=== PATIENT | male | born 1935 | race Caucasian/White ===

== ENCOUNTER 2016-05-21 16:48 | Emergency (ER) | payer MEDICARE, BC ==
[2016-05-21 17:01] VITALS: BP 146/69
--- NOTE | 2016-05-21 17:15 | UC ---
Epistaxis Nasal HPI - HPI Summary HPI Summary: has had nasal drainage for 1 week has been taking decongestants, bloody nose at 4pm that last about 40 mins---did not apply direct pressure just learned his head back - History of Current Complaint Chief Complaint: UCRespiratory Stated Complaint: BLOODY NOSE Time Seen by Provider: 05/21/16 17:07 Hx Obtained From: Patient Onset/Duration: Sudden Onset, Lasting Minutes - 40, Resolved Timing: Constant Severity Initially: Mild Severity Currently: None Pain Intensity: 0 Character: Light Aggravating Factor(s): URI Alleviating Factor(s): Nothing Associated Signs And Symptoms: Positive: Nasal Discharge - Allergies/Home Medications Allergies/Adverse Reactions: Allergies Allergy/AdvReac Type Severity Reaction Status Date / Time No Known Allergies Allergy Verified 08/14/15 15:50 PMH/Surg Hx/FS Hx/Imm Hx Previously Healthy: No Endocrine History Of: Denies: Diabetes Cardiovascular History Of: Denies: Hypertension, Pacemaker/ICD, Congestive Heart Failure Respiratory History Of: Reports: Asthma - CHILDHOOD ASTHMA Denies: Bronchitis, Pulmonary Embolism GI/ History Of: Denies: Kidney Stones, Renal Disease Neurological History Of: Denies: CVA, Seizures, Migraine Psychological History Of: Denies: Anxiety, Depression - Surgical History Surgical History: Yes Surgery Procedure, Year, and Place: 2010 [facility]. CARPAL TUNNEL SURGERY 2011. BACK SURGERY 2015 - Family History Known Family History: Positive: Hypertension - Social History Occupation: Retired Lives: With Family Alcohol Use: Daily Alcohol Amount: 2 GLASSES WINE W/ DINNER Substance Use Type: None Smoking Status (MU): Former Smoker Type: Cigarettes Have You Smoked in the Last Year: No When Did the Patient Quit Smoking/Using Tobacco: 48 years ago - Immunization History Most Recent Influenza Vaccination: fall 2015 Review of Systems Constitutional: Negative Skin: Negative Eyes: Negative ENT: Nasal Discharge - blood for about 40 minutes Respiratory: Negative Cardiovascular: Negative Gastrointestinal: Negative Genitourinary: Negative Motor: Negative Neurovascular: Negative Musculoskeletal: Negative Neurological: Negative Psychological: Negative All Other Systems Reviewed And Are Negative: Yes Physical Exam Triage Information Reviewed: Yes Appearance: Well-Appearing, No Pain Distress, Well-Nourished Vital Signs: Initial Vital Signs Temp 99.0 F 05/21/16 16:55 Pulse 63 05/21/16 16:55 Resp 16 05/21/16 16:55 BP 146/69 05/21/16 16:55 Pulse Ox 100 05/21/16 16:55 Vital Signs Reviewed: Yes Eye Exam: Normal Eyes: Positive: Conjunctiva Clear ENT Exam: Normal ENT: Positive: Normal ENT inspection, Hearing grossly normal, Pharynx normal, TMs normal, Other: - left nare nasal septum is red but no site of bleeding identified. Negative: Pharyngeal erythema, Nasal congestion, Nasal drainage, Tonsillar swelling, Tonsillar exudate, Trismus, Muffled/hoarse voice Neck exam: Normal Neck: Positive: Supple, Nontender, No Lymphadenopathy Respiratory Exam: Normal Respiratory: Positive: Chest non-tender, Lungs clear, Normal breath sounds, No respiratory distress, No accessory muscle use Cardiovascular Exam: Normal Cardiovascular: Positive: RRR, Pulses Normal, Brisk Capillary Refill Musculoskeletal Exam: Normal Musculoskeletal: Positive: Strength Intact, ROM Intact, No Edema Neurological Exam: Normal Neurological: Positive: Alert, Muscle Tone Normal Psychological Exam: Normal Skin Exam: Normal Epistaxis Nasal Course/Dx - Course Course Of Treatment: education on management and prevention of nose bleeds, follow with pcp return as needed - Differential Dx/Diagnosis Differential Diagnosis/HQI/PQRI: Coagulopathy, Environmental, Sinusitis Provider Diagnoses: resolved epistaxis Discharge - Discharge Plan Condition: Stable Disposition: HOME Patient Education Materials: Nosebleed (ED) Referrals: Tylor Bender MD [Primary Care Provider] - If Needed
== END 2016-05-21 17:19 | disposition home or self-care (01) ==
LOC: UCEAST 16:48
DX: R04.0 Epistaxis (principal); J45.909 Unspecified asthma, uncomplicated; Z87.891 Personal history of nicotine dependence
CPT/HCPCS: 99211; G0463

== ENCOUNTER 2016-06-08 22:39 | Emergency (ER) | payer MEDICARE, BC ==
[2016-06-09 00:45] VITALS: BP 166/68
--- NOTE | 2016-06-09 01:00 | ED ---
Skin Complaint - HPI Summary HPI Summary: 80M presents with avulsion of right forearm. He was moving a window and scraped his skin on something in the window. He is right handed. He washed the area, placed peroxide on it and placed neosporin on it. He is not on any blood thinners. - History of Current Complaint Chief Complaint: EDExtremityUpper Time Seen by Provider: 06/09/16 00:38 Stated Complaint: RT ARM WOUND Pain Intensity: 0 - Allergy/Home Medications Allergies/Adverse Reactions: Allergies Allergy/AdvReac Type Severity Reaction Status Date / Time No Known Allergies Allergy Verified 08/14/15 15:50 PMH/Surg Hx/FS Hx/Imm Hx Endocrine/Hematology History: Denies: Hx Bone Marrow Disease, Hx Diabetes, Hx Sickle Cell Disease, Hx Anemia Cardiovascular History: Reports: Hx Peripheral Vascular Disease, Other Cardiovascular Problems/Disorders - Raynauds's Denies: Hx Angina, Hx Cardiomegaly, Hx Congestive Heart Failure, Hx Coronary Artery Disease, Hx Hypertension, Hx Pacemaker/ICD, Hx Rheumatic Fever, Hx Valvular Heart Disease Respiratory History: Reports: Hx Asthma - CHILDHOOD ASTHMA Denies: Hx Pulmonary Edema, Hx Pulmonary Embolism, Hx Sleep Apnea, Other Respiratory Problems/Disorders GI History: Reports: Hx Gastroesophageal Reflux Disease - ONCE 7-8 YEARS AGO Denies: Other GI Disorders - recent severe constipation, taking OTC medications History: Denies: Hx Kidney Infection, Hx Kidney Stones, Hx Renal Disease, Other Problems/Disorders Musculoskeletal History: Reports: Hx Arthritis - THUMBS AND BACK, Hx Back Problems Denies: Hx Tendonitis, Other Musculoskeletal History Sensory History: Reports: Hx Cataracts, Hx Contacts or Glasses, Hx Hearing Aid - BILATERAL Opthamlomology History: Reports: Hx Cataracts, Hx Contacts or Glasses Neurological History: Denies: Hx Headaches, Hx Migraine, Hx Nerve Disease, Hx Seizures, Other Neuro Impairments/Disorders Psychiatric History: Denies: Hx Anxiety, Hx Depression, Hx Panic Disorder - Cancer History Cancer Type, 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 CARPAL TUNNEL SURGERY 2012. BACK SURGERY 2016 Hx Anesthesia Reactions: No Infectious Disease History: No Infectious Disease History: Denies: Traveled Outside the [place] in Last 30 Days - Family History Known Family History: Positive: Hypertension - Social History Alcohol Use: Daily Alcohol Amount: 2 GLASSES WINE W/ DINNER Substance Use Type: Reports: None Smoking Status (MU): Former Smoker Type: Cigarettes Have You Smoked in the Last Year: No Review of Systems Negative: Fever Negative: Chest Pain Negative: Shortness Of Breath Positive: Other - skin avulsion of right forearm All Other Systems Reviewed And Are Negative: Yes Physical Exam Triage Information Reviewed: Yes Vital Signs On Initial Exam: Initial Vitals Temp Pulse Resp BP Pulse Ox 98.3 F 65 16 138/61 98 06/08/16 22:50 06/08/16 22:50 06/08/16 22:50 06/08/16 22:50 06/08/16 22:50 Vital Signs Reviewed: Yes Appearance: Positive: Well-Appearing Skin: Positive: Warm, Dry, Other - 3 cm by 4cm flap like avulsion on right forearm Head/Face: Positive: Normal Head/Face Inspection Eyes: Positive: Normal, Conjunctiva Clear Respiratory/Lung Sounds: Positive: Clear to Auscultation, Breath Sounds Present Cardiovascular: Positive: Normal, RRR Procedures - Laceration/Wound Repair 1 Location: Other - right forearm Description: Irregular Length, Depth and Shape: flap like skin avulsion 3 by 4cm Irrigated w/ Saline (ccs): 100 Closure: Skin Adhesive Diagnostics - Vital Signs Vital Signs Temp Pulse Resp BP Pulse Ox 06/09/16 00:44 98.1 F 60 18 166/68 06/08/16 22:50 98.3 F 65 16 138/61 98 - Laboratory Lab Statement: Any lab studies that have been ordered have been reviewed, and results considered in the medical decision making process. Course/Dx - Course Course Of Treatment: 80F presents with skin avulsion of right forearm that is flap like. cleaned area and place steristrip and covered. patient understands and agrees with plan - Differential Diagnoses - Skin Complaint Differential Diagnoses: Abscess, Other - avulsion, laceration - Diagnoses Provider Diagnoses: Avulsion of right forearm Discharge - Discharge Plan Condition: Good Disposition: HOME Patient Education Materials: Skin Avulsion (ED) Referrals: Tylor Bender MD [Primary Care Provider] - Additional Instructions: Change dressing once a day Place neosporin in area Steri strips will fall off on own Check for any signs of infection such as fever, spreading warmth and redness, pus, and return to ED if develop signs
== END 2016-06-09 01:07 | disposition home or self-care (01) ==
LOC: ED 22:39
DX: S51.801A Unspecified open wound of right forearm, initial encounter (principal); X58.XXXA Exposure to other specified factors, initial encounter; Y93.9 Activity, unspecified; Y92.9 Unspecified place or not applicable
CPT/HCPCS: 99281

== ENCOUNTER 2016-11-20 11:21 | Observation (INO) | payer BC, MEDICARE ==
[2016-11-20 12:01] LABS: Hematocrit 44 % (42-52); Mean Corpuscular HGB Conc 35 g/dl (31-36); Mean Corpuscular Hemoglobin 32 pg (27-31); Mean Corpuscular Volume 92 fL (80-94); Red Blood Count 4.76 10^6/ul (4.0-5.4); Red Cell Distribution Width 14 % (10.5-15); White Blood Count 7.6 10^3/ul (3.5-10.8)
[2016-11-20 12:02] LABS: Add Diff/Slide Review? Slide Review Added; Comments Flag Yes
--- NOTE | 2016-11-20 12:20 | RAD ---
INDICATION: Left-sided numbness COMPARISON: CT of the brain January 30, 2012 TECHNIQUE: Contiguous axial sections of the brain were obtained from the skull base to the vertex without contrast. FINDINGS: The ventricles, cisterns and sulci exhibit mild symmetric involutional changes similar in appearance to the [address] There is mild periventricular and subcortical white matter hypoattenuation most consistent with chronic microvascular disease. There is asymmetric focal hypoattenuation involving the right basal ganglia that appears similar to the 2012 CT of the brain. The raman-white matter differentiation is otherwise adequately maintained and there is no sulcal effacement. No significant focal abnormality or mass effect is present. There is no evidence for intracranial hemorrhage. No significant focal osseous abnormality is present. In the visualized superior portion of the left maxillary sinus there is a mixed attenuation inspissated secretion was not seen on the most recent CT examination. Remaining visualized paranasal sinuses are well-aerated as are the mastoid air cells. IMPRESSION: 1. Chronic findings as described above that of not substantially changed since the January 30, 2012 CT of the brain. If there is strong clinical concern for acute territorial infarction MRI of the brain may be necessary for objective determination. 2. Partially visualized hyperdense inspissated secretion in the left maxillary sinus.
[2016-11-20 12:22] LABS: Mean Platelet Volume 8 um3 (7.4-10.4)
[2016-11-20 12:23] LABS: Albumin 4.2 g/dL (3.2-5.2); BUN/Creatinine Ratio 19.8 (8-20); Calcium 9.5 mg/dL (8.6-10.3); EGFR African American 73.8 (>60); EGFR Non-African American 57.4 (>60); Globulin 3.2 g/dL (2-4); Potassium 3.9 mmol/L (3.5-5.0); Total Bilirubin 0.5 mg/dL (0.2-1.0); Total Protein 7.4 g/dL (6.4-8.9)
[2016-11-20 12:25] LABS: Troponin I 0.01 ng/mL (<0.04)
[2016-11-20 12:43] LABS: Urine Bilirubin Negative (Negative); Urine Glucose Negative (Negative); Urine Nitrite Negative (Negative)
[2016-11-20] MEDS ORDERED: Aspirin TAB* 325 MG PO ONE (13:40)
--- NOTE | 2016-11-20 14:38 | ED ---
Jeromy Maldonado Nilda, scribed for Fer Guerrero MD on 11/20/16 at 1139 . Neurological HPI - HPI Summary HPI Summary: This patient is an 80 year old M presenting to [facility] accompanied by with a chief complaint of intermittent numbness of the LLE, left scapula, and left hand since 0900 this morning. Last night patient had difficulty ambulating and decrease function in left foot as if there was something that was sticky at the bottom of my shoe. Per , she did not notice changes in the patients speech or abnormal facial movement. The patient rates the pain 0/10 in severity. Symptoms aggravated and alleviated by nothing. Patient reports fatigue (went on a hike, yesterday), normal speech, and normal feeling in face. Patient recently stopped taking daily aspirin one week ago due to easy bruising. PMHx includes [place] Palsy and Herniated Disc (2016, resolved). - History of Current Complaint Chief Complaint: EDNeurologicalDeficit Stated Complaint: LT LEG NUMBNESS Hx Obtained From: Patient, Family/Internet Programmer - Onset/Duration: Sudden Onset Timing: Intermittent Episodes Lasting: - 1 day Current Severity: Mild Pain Intensity: 0 Pain Scale Used: 0-10 Numeric Character: Numbness/Tingling - LLE, left scapula, and left hand Aggravating: Nothing Alleviating: Nothing Associated Signs and Symptoms: Negative: Impaired Speech - Allergy/Home Medications Allergies/Adverse Reactions: Allergies Allergy/AdvReac Type Severity Reaction Status Date / Time No Known Allergies Allergy Verified 11/20/16 11:46 Home Medications: Home Medications Mupirocin 2% OINT* [Bactroban 2 % Oint*] 1 applic TOPICAL DAILY 11/20/16 [ History Confirmed 11/20/16] PMH/Surg Hx/FS Hx/Imm Hx Endocrine/Hematology History: Denies: Hx Bone Marrow Disease, Hx Diabetes, Hx Sickle Cell Disease, Hx Anemia Cardiovascular History: Reports: Hx Peripheral Vascular Disease, Other Cardiovascular Problems/Disorders - Raynauds's Denies: Hx Angina, Hx Cardiomegaly, Hx Congestive Heart Failure, Hx Coronary Artery Disease, Hx Hypertension, Hx Pacemaker/ICD, Hx Rheumatic Fever, Hx Valvular Heart Disease Respiratory History: Reports: Hx Asthma - CHILDHOOD ASTHMA Denies: Hx Pulmonary Edema, Hx Pulmonary Embolism, Hx Sleep Apnea, Other Respiratory Problems/Disorders GI History: Reports: Hx Gastroesophageal Reflux Disease - ONCE 7-8 YEARS AGO Denies: Other GI Disorders - recent severe constipation, taking OTC medications History: Denies: Hx Kidney Infection, Hx Kidney Stones, Hx Renal Disease, Other Problems/Disorders Musculoskeletal History: Reports: Hx Arthritis - THUMBS AND BACK, Hx Back Problems Denies: Hx Tendonitis, Other Musculoskeletal History Sensory History: Reports: Hx Cataracts, Hx Contacts or Glasses, Hx Hearing Aid - BILATERAL Opthamlomology History: Reports: Hx Cataracts, Hx Contacts or Glasses Neurological History: 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 CARPAL TUNNEL SURGERY 2012. BACK SURGERY 2016 Hx Anesthesia Reactions: No Infectious Disease History: Yes Infectious Disease History: Denies: Traveled Outside the [place] in Last 30 Days - Family History Known Family History: Negative: Hypertension, Diabetes - Social History Alcohol Use: Daily Alcohol Amount: 2 GLASSES WINE W/ DINNER Substance Use Type: Reports: None Smoking Status (MU): Former Smoker Type: Cigarettes Have You Smoked in the Last Year: No Review of Systems Positive: Fatigue - yesterday Positive: Other - numbness in LLE, left scapula, and left hand Neurological: Other - difficulty ambulating; negative changes in speech and facial movement All Other Systems Reviewed And Are Negative: Yes Physical Exam Triage Information Reviewed: Yes Vital Signs On Initial Exam: Initial Vitals Temp Pulse Resp BP Pulse Ox 96.9 F 65 19 174/71 100 11/20/16 11:24 11/20/16 11:24 11/20/16 11:24 11/20/16 11:24 11/20/16 11:24 Vital Signs Reviewed: Yes Appearance: Positive: Well-Appearing, No Pain Distress Skin: Positive: Warm, Skin Color Reflects Adequate Perfusion, Dry Head/Face: Positive: Normal Head/Face Inspection Eyes: Positive: Normal ENT: Positive: Normal ENT inspection Neck: Positive: Supple, Nontender Respiratory/Lung Sounds: Positive: Clear to Auscultation, Breath Sounds Present Cardiovascular: Positive: RRR Abdomen Description: Positive: Nontender, Soft Bowel Sounds: Positive: Present Musculoskeletal: Positive: Normal Neurological: Positive: Normal Psychiatric: Positive: Normal, Affect/Mood Appropriate Diagnostics - Vital Signs Vital Signs Temp Pulse Resp BP Pulse Ox 11/20/16 11:24 96.9 F 65 19 174/71 100 - Laboratory Lab Results: Lab Results 11/20/16 11/20/16 11/20/16 Range/Units 11:45 11:45 11:45 WBC 7.6 (3.5-10.8) 10^3/ul RBC 4.76 (4.0-5.4) 10^6/ul Hgb 15.0 (14.0-18.0) g/dl Hct 44 (42-52) % MCV 92 (80-94) fL MCH 32 H (27-31) pg MCHC 35 (31-36) g/dl RDW 14 (10.5-15) % Plt Count 231 (150-450) 10^3/ul MPV 8 (7.4-10.4) um3 Neut % (Auto) 66.0 (38-83) % Lymph % (Auto) 22.4 L (25-47) % Collin % (Auto) 8.7 (1-9) % Eos % (Auto) 2.5 (0-6) % Baso % (Auto) 0.4 (0-2) % Absolute Neuts (auto) 5.0 (1.5-7.7) 10^3/ul Absolute Lymphs (auto) 1.7 (1.0-4.8) 10^3/ul Absolute Monos (auto) 0.7 (0-0.8) 10^3/ul Absolute Eos (auto) 0.2 (0-0.6) 10^3/ul Absolute Basos (auto) 0 (0-0.2) 10^3/ul Absolute Nucleated RBC 0 10^3/ul Nucleated RBC % 0 INR (Anticoag Therapy) 0.90 (0.89-1.11) Sodium 131 L (133-145) mmol/L Potassium 3.9 (3.5-5.0) mmol/L Chloride 97 L (101-111) mmol/L Carbon Dioxide 27 (22-32) mmol/L Anion Gap 7 (2-11) mmol/L BUN 24 (6-24) mg/dL Creatinine 1.21 H (0.67-1.17) mg/dL Est GFR ( Amer) 73.8 (>60) Est GFR (Non-Af Amer) 57.4 (>60) BUN/Creatinine Ratio 19.8 (8-20) Glucose 113 H (70-100) mg/dL Hemoglobin A1c (4.0-5.6) % Lactic Acid (0.5-2.0) mmol/L Calcium 9.5 (8.6-10.3) mg/dL Total Bilirubin 0.50 (0.2-1.0) mg/dL AST 23 (13-39) U/L ALT 12 (7-52) U/L Alkaline Phosphatase 43 (34-104) U/L Troponin I 0.01 (<0.04) ng/mL Total Protein 7.4 (6.4-8.9) g/dL Albumin 4.2 (3.2-5.2) g/dL Globulin 3.2 (2-4) g/dL Albumin/Globulin Ratio 1.3 (1-3) Urine Color Urine Appearance Urine pH (5-9) Ur Specific [place] (1.010-1.030) Urine Protein (Negative) Urine Ketones (Negative) Urine Blood (Negative) Urine Nitrate (Negative) Urine Bilirubin (Negative) Urine Urobilinogen (Negative) Ur Leukocyte Esterase (Negative) Urine Glucose (Negative) Urine Ascorbic Acid (Negative) 11/20/16 11/20/16 11/20/16 Range/Units 11:45 11:45 12:14 WBC (3.5-10.8) 10^3/ul RBC (4.0-5.4) 10^6/ul Hgb (14.0-18.0) g/dl Hct (42-52) % MCV (80-94) fL MCH (27-31) pg MCHC (31-36) g/dl RDW (10.5-15) % Plt Count (150-450) 10^3/ul MPV (7.4-10.4) um3 Neut % (Auto) (38-83) % Lymph % (Auto) (25-47) % Collin % (Auto) (1-9) % Eos % (Auto) (0-6) % Baso % (Auto) (0-2) % Absolute Neuts (auto) (1.5-7.7) 10^3/ul Absolute Lymphs (auto) (1.0-4.8) 10^3/ul Absolute Monos (auto) (0-0.8) 10^3/ul Absolute Eos (auto) (0-0.6) 10^3/ul Absolute Basos (auto) (0-0.2) 10^3/ul Absolute Nucleated RBC 10^3/ul Nucleated RBC % INR (Anticoag Therapy) (0.89-1.11) Sodium (133-145) mmol/L Potassium (3.5-5.0) mmol/L Chloride (101-111) mmol/L Carbon Dioxide (22-32) mmol/L Anion Gap (2-11) mmol/L BUN (6-24) mg/dL Creatinine (0.67-1.17) mg/dL Est GFR ( Amer) (>60) Est GFR (Non-Af Amer) (>60) BUN/Creatinine Ratio (8-20) Glucose (70-100) mg/dL Hemoglobin A1c 6.1 H (4.0-5.6) % Lactic Acid 1.3 (0.5-2.0) mmol/L Calcium (8.6-10.3) mg/dL Total Bilirubin (0.2-1.0) mg/dL AST (13-39) U/L ALT (7-52) U/L Alkaline Phosphatase (34-104) U/L Troponin I (<0.04) ng/mL Total Protein (6.4-8.9) g/dL Albumin (3.2-5.2) g/dL Globulin (2-4) g/dL Albumin/Globulin Ratio (1-3) Urine Color Penny Urine Appearance Cloudy Urine pH 5.0 (5-9) Ur Specific [place] 1.023 (1.010-1.030) Urine Protein Negative (Negative) Urine Ketones Trace H (Negative) Urine Blood Negative (Negative) Urine Nitrate Negative (Negative) Urine Bilirubin Negative (Negative) Urine Urobilinogen Negative (Negative) Ur Leukocyte Esterase Negative (Negative) Urine Glucose Negative (Negative) Urine Ascorbic Acid * H (Negative) Result Diagrams: 11/20/16 11:45 11/20/16 11:45 Lab Statement: Any lab studies that have been ordered have been reviewed, and results considered in the medical decision making process. - CT Brain CT CT Interpretation Completed By: Radiologist - 1. Chronic findings as described above that of not substantially changed since the January 30, 2012 CT of the brain. If there is strong clinical concern for acute territorial infarction MRI of the brain may be necessary for objective determination. 2. Partially visualized hyperdense inspissated secretion in the left maxillary sinus. ED Physician reviewed report and agrees. - EKG 1150 Cardiac Rate: NL - 60 bpm EKG Rhythm: Sinus Rhythm EKG Interpretation: no diffuse specific changes Re-Evaluation - Re-Evaluation First Eval Re-Evaluation Time: 12:48 Comment: ED Physician reviewed planned to admit patient. Patient understands and agrees with plan. Course/Dx - Course Course Of Treatment: Mr. Leggett was mildly symptomatic with what could be a TIA/ CVA. His ED W/U was negative and I spoke with Dr. Miranda who recommended OBV and further W/U. - Diagnoses Provider Diagnoses: CVA (cerebral vascular accident) - Physician Notifications Discussed Care Of Patient With: Shelby Miranda - Neuro Time Discussed With Above Provider: 12:33 Instructed by Provider To: Admit As Inpatient Discharge - Discharge Plan Condition: Stable Disposition: ADMITTED TO [facility] Referrals: Tylor Bender MD [Primary Care Provider] - The documentation as recorded by the Jeromy osorio Nilda accurately reflects the service I personally performed and the decisions made by me, Fer Guerrero MD.
--- NOTE | 2016-11-20 17:39 | HP ---
CC: Dr. Bender * [facility] MEDICINE HISTORY AND PHYSICAL: DATE OF ADMISSION: 11/20/16 PRIMARY CARE PHYSICIAN: Dr. Tylor Bender. ATTENDING PHYSICIAN: Dr. Bakari Jones * (dictation provided by Awilda Trinidad NP ). CHIEF COMPLAINT: Left hand tingling and left foot numbness. HISTORY OF PRESENT ILLNESS: Mr. 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 Mr. Leggett says he was in his normal state of health until about 7 o'clock last night, at that time, he felt like something was sticking to the bottom of the foot. He felt that all of the toes on the left were numb. This sensation continued until he went to bed. He got up in the middle of the night a couple of times to go to the bathroom. During those times when he was awake, he did notice that the foot was not numb any longer. However, in the morning, he has had some intermittent feeling of numbness did persist. He does not have left toe numbness now. This morning, at about 8 o'clock noticed that he was having left hand tingling and he ultimately decided to come to the emergency room out of concern for possible stroke. He has had no other acute complaints. Denies fevers, chills, cough, chest pain, shortness of breath, nausea, vomiting, or abdominal pain. He has been eating and drinking normally and had normal full bowel movements. In the emergency room, Mr. Leggett has had CT of the brain, which showed no acute abnormality, but did show only symmetric involutional change and asymmetric focal hypoattenuation of the right basal ganglia, but this was all unchanged from 2012. EKG shows a sinus rhythm with no evidence of ischemia. His labs were unremarkable. PAST MEDICAL HISTORY: 1. 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 2. Lumbar diskectomy L3-L4 in 2016 secondary to left leg pain. 3. Raynaud's. 4. History of right carpal tunnel release. MEDICATIONS: 1. Amlodipine 5 mg p.o. daily p.r.n. Raynaud's symptoms. 2. Naproxen 200 mg p.o. daily. 3. Aspirin 81 mg p.o. daily (the patient states he stopped taking for the past week because he was bruising easily). 4. Mupirocin 2% topical daily to his nostrils for a history of nose bleeding. 5. The patient also takes a cream for actinic keratosis on the right cheek; he does not know the name of that. ALLERGIES: No known drug allergies. FAMILY HISTORY: The patient reports his mother had 2 CVAs, in her 70s. Dad had heart attack at age 86, but related to a stroke in 95. SOCIAL HISTORY: The patient quit smoking in his 30s. He drinks wine at night with dinner, never had any concern for alcohol withdrawal symptoms. No prior drug use. The patient lives with his who is healthcare proxy. REVIEW OF SYSTEMS: A 14-point review of systems was completed with Mr. Leggett and all those not mentioned above were negative. PHYSICAL EXAMINATION GENERAL: Mr. Leggett is sitting up in bed. He is in no acute distress. VITAL SIGNS: Temperature 96.9, pulse rate 72, respiratory rate 18, O2 saturation 99% on room air, blood pressure 169/80. LUNGS: Clear to auscultation bilaterally with no accessory muscle use and good aeration. HEART: S1, S2. No murmur, rub, or gallop and regular. ABDOMEN: Soft, nontender with bowel sounds positive x4. EXTREMITIES: No cyanosis or edema. NEUROLOGIC: He is alert and oriented x3. He moves all extremities equally. There is no facial asymmetry or focal weakness. Sensation is intact to both feet and both hands as well as the remainder of his physical exam. SKIN: Intact. DIAGNOSTIC STUDIES/LAB DATA: Sodium 131, potassium 3.9, chloride 97, serum bicarbonate 27, BUN 24, creatinine 1.21, glucose 113, lactic acid 1.3. Urine shows no evidence of infection. CT brain was read as follows: "Chronic findings as described above that are not substantially changed since 01/30/12 CT of the brain. If there is strong clinical concern for acute territorial infarction, MRI of the brain may be necessary for exact determination." EKG shows a sinus rhythm with heart rate of 60 and no evidence of ischemia. ASSESSMENT AND PLAN: Mr. Leggett is an 80-year-old male with a past medical history of Mclain's palsy of left side of his face, lumbar diskectomy L3-L4 secondary to left leg pain, who presents to the hospital with concern for left- sided toe numbness and left finger tingling, which is now at this point resolved. Our suspicion is for possible transient ischemic attack and our plans are for observation in the hospital for followin. Transient ischemic attack: The patient's symptoms have resolved. Plan to check MRI brain. He will have fasting lipid profile, hemoglobin A1c checked as well. He has had 325 mg of aspirin in the emergency room. He will continue on 81 mg daily. If stroke is found, we will have to consider whether or not the patient should be increased to full dose aspirin or alternate agents such Aggrenox. The patient will be monitored on telemetry unit and he will have transthoracic echocardiogram. 2. Elevated creatinine. The patient's creatinine is 1.21, which is slightly up from baseline and slightly above normal, plan to recheck in the a.m. He can follow up with his primary care physician if any further testing is indicated. 3. History of Raynaud's. The patient will have amlodipine as needed. No evidence of Raynaud's at this point. 4. DVT prophylaxis with SCDs and early mobility. 4. Code status is full code. TIME SPENT: Approximately 60 minutes was spent on the admission of this patient , more than half time was spent with the patient at the bedside reviewing the events leading up to this hospitalization, performing the physical examination, and reviewing the plan of care. AWILDA TRINIDAD, ANGELA [id number]/[facility] #: [id number] CARMELITA
--- NOTE | 2016-11-20 19:25 | RAD ---
Indication: LEFT side numbness, tingling. Some LEFT facial droop. Mclain's palsy. Comparison: January 30, 2012 CT. Technique: UsingMilesa 1.5 Paulette HO366P with GEM suite. MRI brain without contrast. Report: Diffusion series is negative for acute or subacute ischemia. Susceptibility series is negative for stigmata of hemosiderin deposition to indicate previous hemorrhage. Mild prominence of the cerebral sulci. Unremarkable ventricles and basal cisterns. Small chronic lacunar infarct at the RIGHT basal ganglia. Increased T2 signal at the periventricular and subcortical regions of the cerebral hemispheres most consistent with chronic small vessel ischemic disease. Bilateral symmetric mildly prominent perivascular spaces at the basal ganglia and brainstem. No suspicious intra or extra-axial lesions evident. Preserved major intracranial flow voids. Unremarkable orbital contents. Gross complete opacification of the RIGHT frontal sinus. Mucosal thickening at the LEFT frontal and bilateral maxillary sinuses. Negative for paranasal sinus fluid levels. Clear mastoid air spaces. Unremarkable scalp. IMPRESSION: 1. No acute abnormality of the brain evident. 2. Stigmata of chronic small vessel ischemic disease. Small chronic lacunar infarct at the RIGHT basal ganglia.
[2016-11-21 05:47] LABS: BUN/Creatinine Ratio 18.9 (8-20); EGFR African American 81.6 (>60); EGFR Non-African American 63.4 (>60); HDL Cholesterol 66.8 mg/dL; Potassium 4.1 mmol/L (3.5-5.0)
[2016-11-21] MEDS ORDERED: Mupirocin 2% OINT* TUBE TOPICAL SCH (09:00)
[2016-11-21] MEDS ORDERED: Aspirin EC Low Dose* 81 MG TAB.EC PO SCH (09:00)
--- NOTE | 2016-11-21 09:53 | ECHO ---
Patient: MIS SAUNDERS [facility] Rec#: [id number] : 1935 Date: 11/21/2016 Age: 80y Height: 165.1 cm / 65.0 in Weight: 54.43 kg / 120.0 lbs Sex: M BSA: 1.59 Room#: 450 Admit Date#: 11/20/2016 Type: Inpatient Referring: Awilda Trinidad NP Reading: Jean Pierre Edwards MD Clip Wrapper: Sonya dEwards RDCS,RDMS CC: Tylor Bender MD Transthoracic Echocardiogram Indication: TIA BP: 160/82 HR: 59 Rhythm: NSR Findings History: PVD, PACs, Raynauds, former smoker Technical Comments: The study quality is good. Left Ventricle: The left ventricular chamber size is normal. Mild concentric left ventricular hypertrophy is observed. Global left ventricular wall motion and contractility are within normal limits. There is normal left ventricular systolic function. The estimated ejection fraction is 60-65%. There is an E to A reversal in the mitral valve flow pattern suggestive of diastolic dysfunction. Left Atrium: The left atrial chamber size is normal. Right Ventricle: The right ventricular chamber size and systolic function are within normal limits. Right Atrium: The right atrial cavity size is normal. A patent foramen ovale is demonstrated by agitated contrast. Right to left shunting across the interatrial septum is seen on bubble study. Aortic Valve: The aortic valve is trileaflet. There is aortic annular calcification. There is trace to mild aortic regurgitation. There is no evidence of aortic stenosis. Mitral Valve: There is mitral annular calcification. The mitral valve leaflets are mildly thickened.The anterior leaflet has a calcified nodule. There is mild to moderate mitral regurgitation. There is no evidence of mitral stenosis. Tricuspid Valve: The tricuspid valve leaflets are mildly thickened. There is mild to moderate tricuspid regurgitation. No pulmonary hypertension is noted. Pulmonic Valve: The pulmonic valve structure is not well visualized. Pericardium: There is no significant pericardial effusion. Aorta: The ascending aorta is not well visualized. There is no dilatation of the aortic arch. The aortic root is normal in size. Pulmonary Artery: The main pulmonary artery is not well visualized. Venous: The inferior vena cava appears normal in size. There is a greater than 50% respiratory change in the inferior vena cava dimension. Contrast: Intravenous agitated saline contrast was used to assess intracardiac shunting. Images 82 and 83 Conclusions Mild concentric left ventricular hypertrophy is observed. There is normal left ventricular systolic function. The estimated ejection fraction is 60-65%. A patent foramen ovale is demonstrated by agitated contrast. Right to left shunting across the interatrial septum is seen on bubble study. There is trace to mild aortic regurgitation. The mitral valve leaflets are mildly thickened.The anterior leaflet has a calcified nodule. There is mild to moderate tricuspid regurgitation. The right ventricular chamber size and systolic function are within normal limits. The right atrial cavity size is normal. No reports of prior studies are offered for comparison. Transesophageal echocardiography may be of benefit to better assess shunting at atrial level . Measurements Name Value Normal Range RVIDd (AP) 2D 2.1 cm (0.9 - 2.6) RVDdMajor (2D) 2.6 cm (2.2 - 4.4) RAd ISD 4CH 4.5 cm (3.4 - 4.9) RA (A4C)W 3.8 cm (2.9 - 4.6) IVSd (2D) 1.3 cm (0.6 - 1) LVPWd (2D) 1.1 cm (0.6 - 1) LVIDd (2D) 3.7 cm (3.6 - 5.4) LVIDs (2D) 2.6 cm - LV FS (2D) 28 % (25 - 45) Aortic Annulus 1.9 cm (1.4 - 2.6) Ao root diameter (2D) 3.3 cm (2.1 - 3.5) Aortic arch 2.3 cm (1.8 - 3.4) LA dimension (AP) 2D 2.4 cm (2.3 - 3.8) LAd ISD 4CH 3.8 cm (2.9 - 5.3) LA ISD 4CH W 3.8 cm (2.5 - 4.5) Name Value Normal Range MV E-wave Vmax 0.6 m/sec - MV deceleration time 182.5 msec - MV A-wave Vmax 0.8 m/sec - MV E:A ratio 0.8 ratio - LV septal e' Vmax 0.04 m/sec - LV lateral e' Vmax 0.07 m/sec - LV E:e' septal ratio 15 ratio - LV E:e' lateral ratio 8.6 ratio - Name Value Normal Range AV Vmax 1.1 m/sec - AV VTI 26.3 cm - AV peak gradient 5 mmHg - AV mean gradient 2.4 mmHg - LVOT Vmax 0.7 m/sec - LVOT VTI 17.4 cm - LVOT peak gradient 2 mmHg - LVOT mean gradient 0.9 mmHg - MELVA Vmax 0.7 m/sec - Name Value Normal Range MR Vmax 7.07 m/sec - MR VTI 233.8 cm - Name Value Normal Range TR Vmax 2.5 m/sec - TR peak gradient 25 mmHg - RAP 3 mmHg - RVSP 27 mmHg - IVC diameter 1.5 cm -
--- NOTE | 2016-11-21 11:31 | PN ---
Subjective Date of Service: 11/21/16 Interval History: Patient seen and examined at bedside. Denies fever, chills, shortness of breath , chest discomfort, N/V/D, numbness. Pt reports some tingling to bilateral hands , that he feels may be related to his Raynaud's. Pt states that he eats a healthy diet. He would like to wait and discuss statin use with his PCP at his follow-up appointment. Tele: Sinus rhythm, rate 60-90's. Family History: Unchanged from Admission Social History: Unchanged from Admission Past Medical History: Unchanged from Admission Objective Active Medications: Aspirin (Aspirin Ec Low Dose*) 81 mg PO DAILY PREM Mupirocin (Bactroban 2 % Oint*) 1 applic TOPICAL DAILY [facility] Vital Signs 11/20/16 11/20/16 11/20/16 13:50 14:00 14:15 Temperature Pulse Rate 88 68 66 Respiratory 15 16 Rate Blood Pressure 166/120 169/86 172/73 (mmHg) O2 Sat by Pulse 79 100 100 Oximetry 11/20/16 11/20/16 11/20/16 14:30 14:45 15:00 Temperature Pulse Rate 64 64 64 Respiratory 15 15 16 Rate Blood Pressure 170/71 167/79 163/81 (mmHg) O2 Sat by Pulse 100 98 97 Oximetry 11/20/16 11/20/16 11/20/16 15:10 15:15 19:35 Temperature 97.3 F 97.3 F Pulse Rate 73 68 65 Respiratory 15 16 18 Rate Blood Pressure 163/81 160/82 161/81 (mmHg) O2 Sat by Pulse 95 99 100 Oximetry 11/20/16 11/21/16 11/21/16 23:30 03:40 07:26 Temperature 97.9 F 98.2 F 97.5 F Pulse Rate 54 61 58 Respiratory 14 16 20 Rate Blood Pressure 144/60 155/81 157/76 (mmHg) O2 Sat by Pulse 98 99 100 Oximetry Oxygen Devices in Use Now: None Appearance: NAD, laying in bed Ears/Nose/Mouth/Throat: Mucous Membranes Moist Respiratory: Symmetrical Chest Expansion and Respiratory Effort, Clear to Auscultation Cardiovascular: NL Sounds; No Murmurs; No JVD, RRR Abdominal: NL Sounds; No Tenderness; No Distention Extremities: No Edema Skin: No Rash or Ulcers Neurological: Alert and Oriented x 3, NL Muscle Strength and Tone, - - Hand key ringer equal, able to perform finger to nose bilateral, smile symmetric, no pronator drift noted. Lines/Tubes/Other Access: Clean, Dry and Intact Peripheral IV - site benign Nutrition: Taking PO's Result Diagrams: 11/20/16 11:45 11/21/16 05:17 Assess/Plan/Problems-Billing Assessment: Mr. Leggett is an 80 yo male with PMH significant for Mclain's palsy of the left side of his face, s/p lumbar diskectomy L3-4 secondary to left leg pain who presented to the hospital with left-sided toe numbness and left finger tingling , which has resolved. He was admitted for a possible TIA. - Patient Problems (1) TIA (transient ischemic attack) Comment: - Symptoms resolved - Brain MRI - no acute abnormality, small chronic lacunar infarct at the right basal ganglia. - Echo - Mild concentric LVH, EF 60-65%, PFO with right to left shunting. - Continue ASA - Elevated LDL, Pt would like to discuss starting a statin with his PCP (2) Elevated serum creatinine Code(s): R79.89 - OTHER SPECIFIED ABNORMAL FINDINGS OF BLOOD CHEMISTRY SNOMED Code(s): 442617095 Comment: - Resolved (3) HTN (hypertension) Code(s): I10 - ESSENTIAL (PRIMARY) HYPERTENSION SNOMED Code(s): 90131459 Comment: - SBP 140-170's - Start Amlopidpine daily (4) History of Raynaud's syndrome Code(s): Z86.79 - PERSONAL HISTORY OF OTHER DISEASES OF THE CIRCULATORY SYSTEM SNOMED Code(s): 335584906 Comment: - Continue Amlodipine (5) DVT prophylaxis Code(s): NEN1441 - SNOMED Code(s): 239505960 (6) Full code status Code(s): Z78.9 - OTHER SPECIFIED HEALTH STATUS SNOMED Code(s): 997312944 Status and Disposition: OBV. Stable for discharge to home today.
[2016-11-21 12:38] VITALS: BP 145/76
--- NOTE | 2016-11-22 03:26 | DS ---
CC: Dr. Tylor Bender * DISCHARGE SUMMARY: DATE OF ADMISSION: 11/20/16 DATE OF DISCHARGE: 11/21/16 ATTENDING PHYSICIAN: Dr. Leonardo Booth * (dictated by Sea Ruvalcaba NP). PRIMARY CARE PROVIDER: Dr. Tylor Bender. PRIMARY DIAGNOSES: 1. Transient ischemic attack. 2. Hyperlipidemia. SECONDARY DIAGNOSES: 1. History of Mclain's palsy. 2. Raynaud's disease. STUDIES WHILE IN THE HOSPITAL: 1. Brain CT from 11/20/16. Radiologist impression: Chronic findings as described above that have not substantially changed since the 01/30/12 CT of the brain. If there is strong clinical concern for acute territorial infarction , MRI of the brain may be necessary for objective determination. Partially visualized hyperdense inspissated secretion of the left maxillary sinus. 2. Brain CT from 11/20/16. Radiologist impression: No acute abnormality of the brain evident. Stigmata of chronic small vessel ischemic disease. Small chronic lacunar infarct at the right basal ganglia. 3. Transthoracic echocardiogram from 11/21/16. Director Product impression: Mild concentric left ventricular hypertrophy is observed. There is normal left ventricular systolic function. The estimated ejection fraction is 60% to 65%. A patent foramen ovale is demonstrated by agitated contrast. Right to left shunting across the interatrial septum is seen on bubble study. There is trace to mild aortic regurgitation. The mitral valve leaflets are mildly thickened. The anterior leaflet has a calcified nodule. There is [id number] tricuspid regurgitation. The right ventricular chamber size and systolic function are within normal limits. The right atrial cavity size is normal. No report of prior studies are offered for comparison. Transesophageal echocardiography may be a benefit to better assess the shunting at atrial levels. DISCHARGE MEDICATIONS: Continued home medications: 1. Mupirocin 2% ointment apply topical daily. 2. Naproxen 200 mg oral daily. 3. Aspirin 81 mg oral daily. Changed home medication: Amlodipine changed from 5 mg oral daily as needed during cold weather to 5 mg oral daily. HISTORY OF PRESENT ILLNESS/HOSPITAL COURSE: Mr. 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 Prior to that, Mr. Leggett had reported being in his normal state of health. The patient had gone to with left toe numbness and then when he got up in the middle of the night, he noticed that his foot was no longer numb. However, in the morning, he intermittently continue to have the feeling of intermittent left foot numbness. The patient also that morning had noticed left hand tingling. He decided to present to the emergency room for further evaluation of his symptoms. While in the emergency room, Mr. Leggett had a CT of the brain showing no acute abnormalities. The patient had an EKG showing a sinus rhythm with no signs of acute ischemia. His labs were unremarkable. The Hospitalists were asked to evaluate the patient for admission. While in the hospital, the patient underwent a brain CT showing chronic lacunar infarct at the right basal ganglia, but no acute signs of the cerebrovascular accident. The patient had echocardiogram showing a patent foramen ovale. The patient had fasting lipids showing cholesterol of 182 and LDL of 103, HDL of 66. The patient is no longer having any numbness or tingling. He was up ambulating and was monitored on telemetry with no acute findings. Mr. Leggett is stable for discharge to home today. Vital signs are as follows, temperature 97.2, heart rate 70, respiratory rate 16, O2 sat 100% on room air, blood pressure 145/76. DISCHARGE PLAN: Mr. Leggett will be discharged to home. ACTIVITY: As tolerated. DIET: He should be on a heart healthy diet. As far as the patient's numbness and tingling, I suspect this was a TIA. The patient has been continued on a baby aspirin. The patient's cholesterol was under 200, but his LDL was 103. I offered to start the patient to start on a statin and he wishes to defer this to his primary care provider to discuss at his followup appointment. The patient was also noted to be slightly hypertensive during his stay with blood pressure systolically in the 140s to 170s. I have asked him to take his amlodipine daily instead of as needed. The patient has a followup appointment with his primary care provider, Dr. Bender, on 11/29/16 at 05:20 p.m. The patient has been asked to return to the emergency room for any chest pain, shortness of breath, or stroke symptoms. This is a summarized report of a complex medical history and hospital stay. For further details, please see the entire medical record. TIME SPENT: Time for this discharge was approximately 50 minutes, greater than half of that was spent with the patient discussing discharge plans and instructions. CONDITION ON DISCHARGE: Stable. SEA ARDON NP [id number]/[facility] #: [id number] CARMELITA
== END 2016-11-21 12:55 | disposition home or self-care (01) ==
LOC: ED 11:21 → MEDTELE 13:40
PROVIDERS: ADMIT Internal Medicine; ATTEND Internal Medicine
DX: G45.9 Transient cerebral ischemic attack, unspecified (principal); E87.5 Hyperkalemia; I73.00 Raynaud's syndrome without gangrene; Z87.891 Personal history of nicotine dependence; R79.89 Other specified abnormal findings of blood chemistry
CPT/HCPCS: 36415; 70450; 70551; 80048; 80053; 80061; 81003; 83036; 83605; 84484; 85025; 85610; 93005; 93306; 99284; A9270-GY; G0378

== ENCOUNTER 2017-11-26 09:27 | Emergency (ER) | payer MEDICARE ==
[2017-11-26] MEDS ORDERED: NS 0.9% 1000 ML* 1,000 ML IV ONE (09:33)
[2017-11-26] MEDS ORDERED: Ondansetron INJ* 2 MG/ML VIAL IV ONE (09:34)
--- NOTE | 2017-11-26 09:35 | ED ---
Syncope/Near Syncope - HPI Summary HPI Summary: This patient is a 82 year old M BIBA to [facility] with a chief complaint of a syncopal episode that occurred this morning. Per EMS when they arrived pt was unconscious and his was holding him up. Once he was put on the stretcher he quickly recovered. The patient rates the pain 0/10 in severity. Patient reports feels like he could make a BM.Patient denies diarrhea, vomiting, and etoh use today. Pt states this AM he felt like he could use the bathroom and he has been having trouble with constipation, yesterday he took a suppository. One year ago pt had a syncopal episode and was worked up for TIA but work up was negative - History Of Current Complaint Time Seen by Provider: 11/26/17 09:32 Hx Obtained From: Patient Onset/Duration: Sudden Onset, Resolved Timing: Seconds Context: Witnessed Activity At Onset: At Rest Associated Head Trauma: No Alleviating Factor(s): Spontaneous Resolution - Allergies/Home Medications Allergies/Adverse Reactions: Allergies Allergy/AdvReac Type Severity Reaction Status Date / Time No Known Allergies Allergy Verified 05/10/17 13:14 Home Medications: Home Medications Atorvastatin* [Lipitor 20 MG*] 20 mg PO DAILY 11/26/17 [History Confirmed ] PMH/Surg Hx/FS Hx/Imm Hx Endocrine/Hematology History: Denies: Hx Bone Marrow Disease, Hx Diabetes, Hx Sickle Cell Disease, Hx Anemia Cardiovascular History: Reports: Hx Peripheral Vascular Disease, Other Cardiovascular Problems/Disorders - Raynauds's Denies: Hx Angina, Hx Cardiomegaly, Hx Congestive Heart Failure, Hx Coronary Artery Disease, Hx Hypertension, Hx Pacemaker/ICD, Hx Rheumatic Fever, Hx Valvular Heart Disease Respiratory History: Reports: Hx Asthma - CHILDHOOD ASTHMA Denies: Hx Pulmonary Edema, Hx Pulmonary Embolism, Hx Sleep Apnea, Other Respiratory Problems/Disorders GI History: Reports: Hx Gastroesophageal Reflux Disease - ONCE 7-8 YEARS AGO Denies: Other GI Disorders - recent severe constipation, taking OTC medications History: Denies: Hx Kidney Infection, Hx Kidney Stones, Hx Renal Disease, Other Problems/Disorders Musculoskeletal History: Reports: Hx Arthritis - THUMBS AND BACK, Hx Back Problems Denies: Hx Tendonitis, Other Musculoskeletal History Sensory History: Reports: Hx Cataracts, Hx Contacts or Glasses, Hx Hearing Aid Opthamlomology History: Reports: Hx Cataracts, Hx Contacts or Glasses Neurological History: 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 BILATERAL CATARACTS Hx Anesthesia Reactions: No - Family History Known Family History: Negative: Hypertension, Diabetes - Social History Lives: With Family Alcohol Use: Daily Alcohol Amount: 1-2 glasses of wine a night Substance Use Type: Reports: None Smoking Status (MU): Former Smoker Type: Cigarettes Have You Smoked in the Last Year: No Review of Systems Positive: Other - constipation . Negative: Vomiting, Diarrhea Positive: Syncope All Other Systems Reviewed And Are Negative: Yes Physical Exam - Summary Physical Exam Summary: Appearance: Well appearing, no pain distress Skin: warm, dry, reflects adequate perfusion Head/face: normal Eyes: EOMI, ROBERT ENT: mucous membranes moist Neck: supple, non-tender, no bruits Respiratory: CTA, breath sounds present Cardiovascular: RRR, pulses symmetrical, pulses are strong Abdomen: non-tender, soft. No masses Bowel Sounds: present Musculoskeletal: normal, strength/ROM intact Neuro: normal, sensory motor intact, A&Ox3 Rectal: stool soft and brown, no blood. Triage Information Reviewed: Yes Vital Signs Reviewed: Yes Procedures - Ultrasound No standard instances Ultrasound: normal - no AAA Diagnostics - Laboratory Result Diagrams: 11/26/17 09:38 11/26/17 09:38 Lab Statement: Any lab studies that have been ordered have been reviewed, and results considered in the medical decision making process. - EKG 0927 Cardiac Rate: Bradycardia EKG Rhythm: Sinus Bradycardia - at [address] Segment: Normal EKG Interpretation: normal axis, normal intervals Re-Evaluation - Re-Evaluation First Eval Re-Evaluation Time: 10:58 Change: Improved Comment: Pt is feeling better. Course/Dx Course Of Treatment: Patient with a history of irritable bowel/constipation problems who presents with syncope following an episode where he had some abdominal cramping. His abdomen is nontender at present. His vitals are all normal here. He recovered quickly once she was laid to the ground. He has had history of syncope in the past after similar presentation then. He was hydrated here with relief and was discharged in good condition to follow up promptly with primary care physician. Bedside ultrasound of the abdominal aortic shows no presence of aneurysm. - Diagnoses Differential Diagnosis/HQI/PQRI: Positive: Cerebral Vascular Accident, Hyperventilation, Hypovolemia, Metabolic Reaction, Medication Reaction Provider Diagnoses: Chronic constipation, Vasovagal syncope Discharge - Sign-Out/Discharge Documenting (check all that apply): Patient Departure - Discharge Plan Condition: Improved Disposition: HOME Prescriptions: Bisacodyl SUPP* [Dulcolax Supp*] 10 mg NC DAILY PRN #10 supp PRN Reason: Constipation Docusate CAP* [Colace Cap*] 100 mg PO BID #30 cap Polyethylene Glycol 3350* [Miralax*] 17 gm PO BID PRN #1 bottle PRN Reason: Constipation Patient Education Materials: Syncope (ED) Referrals: Tylor Bender MD [Primary Care Provider] - Additional Instructions: Call your doctor today to schedule prompt follow-up. Drink plenty of fluids. Natural fruit juices, exercise and abdominal massage may help with constipation. Return if worse, passing out again, new symptoms or other concerns. - Billing Disposition and Condition Condition: IMPROVED Disposition: Home - Attestation Statements Document Initiated by Oksana: Yes Documenting Scribe: Andriy Hamlin Provider For Whom Oksana is Documenting (Include Credential): Kushal Gregory MD Scribe Attestation: Andriy Maldonado , scribed for Kushal Gregory MD on 11/26/17 at 1413. Scribe Documentation Reviewed: Yes Provider Attestation: The documentation as recorded by the Andriy osorio accurately reflects the service I personally performed and the decisions made by me, Kushal Gregory MD
[2017-11-26 09:47] LABS: ABS Basophils 0.1 10^3/ul (0-0.2); ABS Eosinophils 0.3 10^3/ul (0-0.6); ABS Lymphocytes 2.7 10^3/ul (1.0-4.8); ABS Monocytes 0.5 10^3/ul (0-0.8); ABS Neutrophils 3.5 10^3/ul (1.5-7.7); ABS Nucleated RBC 0 10^3/ul; Eosinophil % 4.8 % (0-6); Hematocrit 37 % (42-52); Hemoglobin 12.1 g/dl (14.0-18.0); Lymphocyte % 37.8 % (25-47); Mean Corpuscular HGB Conc 33 g/dl (31-36); Mean Corpuscular Hemoglobin 31 pg (27-31); Mean Corpuscular Volume 94 fL (80-94); Mean Platelet Volume 7.8 um3 (7.4-10.4); Nucleated Red Blood Cells % 0.2; Platelet Count 200 10^3/ul (150-450); Red Blood Count 3.94 10^6/ul (4.00-5.40); Red Cell Distribution Width 14 % (10.5-15); White Blood Count 7.1 10^3/ul (3.5-10.8)
[2017-11-26 09:53] LABS: INR 0.96 (0.77-1.02)
[2017-11-26 10:21] LABS: EGFR Non-African American 61.2 (>60)
[2017-11-26 10:43] LABS: Urine Appearance Clear; Urine Blood Negative (Negative); Urine Color Yellow; Urine Ketones Negative (Negative); Urine Protein Negative (Negative); Urine Specific Gravity 1.012 (1.010-1.030); Urine Urobilinogen Negative (Negative)
[2017-11-26 11:52] VITALS: BP 135/74
== END 2017-11-26 11:47 | disposition home or self-care (01) ==
LOC: ED 09:27
DX: R55 Syncope and collapse (principal); K59.09 Other constipation; I73.9 Peripheral vascular disease, unspecified; I73.00 Raynaud's syndrome without gangrene; Z85.828 Personal history of other malignant neoplasm of skin
CPT/HCPCS: 36415; 80053; 81003; 83605; 83735; 84443; 84484; 85025; 85610; 93005; 96361; 96374; 99283

== ENCOUNTER 2018-09-18 18:45 | Emergency (ER) | payer MEDICARE ==
--- OUTSIDE RECORDS SUMMARY | 2018-09-18 18:50 | XMS REPORT | Continuity of Care Document ---
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 Onset: 12/26/2013 Presbyopia Trevon Cortes O.D. Onset: 12/26/2013 Blepharitis Trevon Cortes O.D. Onset: 12/26/2013 Vitreous degeneration Trevon Cortes O.D. Onset: 12/26/2013 Family History Date Family Member(s) Observation Comments General Noncontributory Father Heart Disease Father Glasses Mother Glasses Social History Type Date Description Comments Sex Unknown ETOH Use Occasionally consumes alcohol Tobacco Use Start: Unknown Patient has never smoked Smoking Status Reviewed: 09/03/18 Patient has never smoked Allergies, Adverse Reactions, Alerts Active Allergies Reaction Severity Comments Date NKDA 12/26/2013 Seasonal 12/26/2013 Hay Fever 09/03/2018 Pollen 09/03/2018 Medications Active Medications SIG Qnty Indications Ordering Provider Date Amlodipine Besylate Tylor Bender MD 5mg Tablets Atorvastatin Calcium Tylor Bender MD 20mg Tablets Probiotic as needed Unknown 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 10mg Tablets History Medications Azithromycin Unknown - 250mg Tablets 01/21/2015 Azithromycin take 2 tablets by Unknown - 250mg Tablets mouth today then 1 01/21/2015 tablet once daily Nifedipine Tylor Bender MD - 10mg Capsules 01/21/2015 Vital Signs Date Vital Result Comment 08/21/2017 10:08am Intraocular Pressure Right Eye 15 mmHg Intraocular Pressure Left Eye 15 mmHg 01/24/2017 10:26am Intraocular Pressure Right Eye 15 mmHg Intraocular Pressure Left Eye 15 mmHg 01/24/2016 1:56pm Intraocular Pressure Right Eye 13 mmHg Intraocular Pressure Left Eye 12 mmHg 01/21/2015 3:04pm Intraocular Pressure Right Eye 16 mmHg Intraocular Pressure Left Eye 14 mmHg 12/26/2013 10:25am Intraocular Pressure Right Eye 16 mmHg Intraocular Pressure Left Eye 16 mmHg Procedures Date Code Description Status 08/21/2017 01737 Refraction Completed 08/21/2017 95475 Eye Exam Est Intermediate Completed 01/24/2017 01826 Eye Exam Est Intermediate Completed 01/24/2016 41894 Ophthalmoscopy Subsequent Completed 01/24/2016 29020 Refraction Completed 01/24/2016 51661 Eye Exam Est Comprehensive Completed 01/21/2015 86259 Ophthalmoscopy Subsequent Completed 01/21/2015 20814 Refraction Completed 01/21/2015 64056 Eye Exam Est Comprehensive Completed 12/26/2013 88882 Eye Exam Est Comprehensive Completed 12/26/2013 68657 Refraction Completed 12/21/2010 62525 Eye Exam Est Intermediate Completed 05/30/2010 01124 Extracapsular Cataract Extraction W/Intraocular Lens Completed 05/23/2010 20512 Extracapsular Cataract Extraction W/Intraocular Lens Completed 04/12/2010 72876 Ophthalmic Biometry By Partial Coherence Interferometry Completed W/Intra 04/12/2010 04778 Eye Exam Est Comprehensive Completed 07/30/2009 29911 Eye Exam Est Comprehensive Completed 07/23/2008 68276 Ophthalmoscopy Initial Completed 07/23/2008 05926 Refraction Completed 07/23/2008 99333 Eye Exam New Comprehensive Completed
[2018-09-18 19:01] VITALS: BP 150/83
--- NOTE | 2018-09-18 20:27 | UC ---
Skin Complaint HPI - HPI Summary HPI Summary: 82-year-old male presents with plaints of leaking from a surgical incision. States earlier today he had a squamous cell excision performed at Dr. Staples 's office. States he removed the dressing that was applied in the office because it had become saturated with blood and when he removed the dressing started having profuse bleeding from the incision site. He placed a mother bandage over this site and came directly to the urgent care. Patient denies blood thinners or bleeding disorder. - History of Current Complaint Chief Complaint: UCSkin Time Seen by Provider: 09/18/18 20:20 Stated Complaint: LEG LACERATION Hx Obtained From: Patient Pain Intensity: 2 - Allergy/Home Medications Allergies/Adverse Reactions: Allergies Allergy/AdvReac Type Severity Reaction Status Date / Time No Known Allergies Allergy Verified 09/18/18 19:01 PMH/Surg Hx/FS Hx/Imm Hx Endocrine History: Dyslipidemia Cardiovascular History: Hypertension Neurological History: TIA - Surgical History Surgical History: Yes Surgery Procedure, Year, and Place: CARPAL TUNNEL, L3-4 REPAIR OF BULGING DISC. BILATERAL CATARACTS - Family History Known Family History: Negative: Hypertension, Diabetes - Social History Alcohol Use: Daily Alcohol Amount: 1-2 glasses of wine a night Substance Use Type: None Smoking Status (MU): Former Smoker Type: Cigarettes Have You Smoked in the Last Year: No When Did the Patient Quit Smoking/Using Tobacco: 48 years ago - Immunization History Most Recent Influenza Vaccination: fall 2015 Review of Systems All Other Systems Reviewed And Are Negative: Yes Constitutional: Negative: Fever, Chills Skin: Positive: Other - See HPi Respiratory: Positive: Negative Cardiovascular: Positive: Negative Gastrointestinal: Positive: Negative Genitourinary: Positive: Negative Musculoskeletal: Positive: Negative Neurological: Positive: Negative Is Patient Immunocompromised?: No Physical Exam - Summary Physical Exam Summary: GENERAL APPEARANCE: Well developed, well nourished, alert and cooperative, and appears to be in no acute distress. CARDIAC: Normal S1 and S2. No S3, S4 or murmurs. Rhythm is regular. There is no peripheral edema, cyanosis or pallor. Extremities are warm and well perfused. Capillary refill is less than 2 seconds. Peripheral pulses intact. LUNGS: Clear to auscultation without rales, rhonchi, wheezing or diminished breath sounds. ABDOMEN: Positive bowel sounds. Soft, nondistended, nontender. No guarding or rebound. No masses or hepatosplenomegally. MUSKULOSKELETAL: ROM intact to all extremities. No joint erythema or tenderness. Normal muscular development. Normal gait. SKIN: There is a 4.5 cm surgical incision with wound margins well approximated with 4 interrupted sutures to the medial aspect of the left knee. There was a small amount of oozing of blood from the proximal suture. No erythema, edema, or hematoma noted. Triage Information Reviewed: Yes Vital Signs: Initial Vital Signs Temp 97.4 F 09/18/18 18:56 Pulse 59 09/18/18 18:56 Resp 16 09/18/18 18:56 BP 150/83 09/18/18 18:56 Pulse Ox 99 09/18/18 18:56 Vital Signs Reviewed: Yes Course/Dx - Course Course Of Treatment: 82-year-old male presents with plaints of leaking from a surgical incision. States earlier today he had a squamous cell excision performed at Dr. Staples 's office. States he removed the dressing that was applied in the office because it had become saturated with blood and when he removed the dressing started having profuse bleeding from the incision site. He placed a mother bandage over this site and came directly to the urgent care. Patient denies blood thinners or bleeding disorder. Afebrile. Vital signs stable. On arrival patient was noted to have a saturated dressing over the surgical site. When it was removed by the RN she states that there was slow oozing at the site of the proximal suture. The RN placed a pressure dressing to the site which was left in place approximately 40 minutes. I removed the pressure dressing and examined the site. There was a 4.5 cm surgical incision with wound margins well approximated with 4 interrupted sutures to the medial aspect of the left knee. There was a small amount of oozing of blood from the proximal suture. No erythema, edema, or hematoma noted. I applied a bulky gauze pressure dressing and have instructed the patient to leave this in place until tomorrow. He is to remove the pressure dressing in the morning to see if the bleeding has been adequately controlled. So he is to continue with dressing changes as previously directed. If he is still having bleeding in the morning he is to reapply the pressure dressing and to contact Dr. Staples's office. Patient is to seek immediate medical attention in the emergency room if he saturated through the pressure dressing. Verbalizes understanding and agrees with plan of care. - Diagnoses Provider Diagnosis: Postoperative hemorrhage from incision Discharge - Sign-Out/Discharge Documenting (check all that apply): Patient Departure All imaging exams completed and their final reports reviewed: No Studies - Discharge Plan Condition: Stable Disposition: HOME Referrals: Tylor Bender MD [Primary Care Provider] - Joana Staples [Medical Doctor] - 1 Day (If no improvement in symptoms.) Additional Instructions: Leave the pressure dressing that was applied in the clinic in place until tomorrow morning. Tomorrow you may remove to see if the bleeding has subsided. If so, continue with dressing changes as previously directed. If not, reapply the pressure dressing and call Dr. Staples's office. Seek immediate medical attention in the emergency room if you have continued bleeding through the pressure dressing or any worsening of symptoms. - Billing Disposition and Condition Condition: STABLE Disposition: Home - Attestation Statements Provider Attestation: Per institutional requirements, I have reviewed the chart, however, I was not consulted specifically or made aware of this patient by the midlevel provider. I did not personally evaluate, interact with , or disposition this patient.
== END 2018-09-18 20:50 | disposition home or self-care (01) ==
LOC: UCEAST 18:45
DX: L76.21 Postprocedural hemorrhage of skin and subcutaneous tissue following a dermatologic procedure (principal); E78.5 Hyperlipidemia, unspecified; I10 Essential (primary) hypertension; Z86.73 Personal history of transient ischemic attack (TIA), and cerebral infarction without residual deficits; Z87.891 Personal history of nicotine dependence
CPT/HCPCS: 99211; G0463

== ENCOUNTER 2018-11-17 07:16 | Emergency (ER) | payer MEDICARE ==
[2018-11-17 07:24] VITALS: BP 140/75
--- NOTE | 2018-11-17 08:18 | ED ---
Skin Complaint - HPI Summary HPI Summary: 82 yo WM c/o right post forearm skin abrasion with skin flap intact, scraped against an object during a poer outage last night in his house, denies f/c, did not fall - History of Current Complaint Chief Complaint: UCWounds Time Seen by Provider: 11/17/18 07:31 Stated Complaint: ARM COMPLAINT Hx Obtained From: Patient Onset/Duration: Started Days Ago Skin Exposure Onset/Duration: Days Ago Timing: Constant Onset Severity: Mild Current Severity: Mild Pain Intensity: 0 - Additional Pertinent History Primary Care Physician: LISA - Allergy/Home Medications Allergies/Adverse Reactions: Allergies Allergy/AdvReac Type Severity Reaction Status Date / Time No Known Allergies Allergy Verified 09/18/18 19:01 PMH/Surg Hx/FS Hx/Imm Hx Previously Healthy: Yes Endocrine/Hematology History: Denies: Hx Bone Marrow Disease, Hx Diabetes, Hx Sickle Cell Disease, Hx Thyroid Disease, Hx Anemia Cardiovascular History: Reports: Hx Hypertension, Hx Peripheral Vascular Disease , Other Cardiovascular Problems/Disorders - Raynauds's Denies: Hx Angina, Hx Cardiomegaly, Hx Congestive Heart Failure, Hx Coronary Artery Disease, Hx Pacemaker/ICD, Hx Rheumatic Fever, Hx Valvular Heart Disease Respiratory History: Denies: Hx Asthma - CHILDHOOD ASTHMA, Hx Chronic Obstructive Pulmonary Disease (COPD), Hx Pulmonary Edema, Hx Pulmonary Embolism, Hx Sleep Apnea, Other Respiratory Problems/Disorders GI History: Reports: Hx Gastroesophageal Reflux Disease - ONCE 7-8 YEARS AGO Denies: Hx Ulcer, Other GI Disorders - recent severe constipation, taking OTC medications History: Denies: Hx Kidney Infection, Hx Kidney Stones, Hx Renal Disease, Other Problems/Disorders Musculoskeletal History: Reports: Hx Arthritis - THUMBS AND BACK, Hx Back Problems Denies: Hx Tendonitis, Other Musculoskeletal History Sensory History: Reports: Hx Cataracts, Hx Contacts or Glasses, Hx Hearing Aid Opthamlomology History: Reports: Hx Cataracts, Hx Contacts or Glasses Neurological History: 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 BILATERAL CATARACTS Hx Anesthesia Reactions: No Infectious Disease History: No Infectious Disease History: Denies: Hx Hepatitis, Hx Human Immunodeficiency Virus (HIV), Traveled Outside the [place] in Last 30 Days - Family History Known Family History: Positive: Non-Contributory Negative: Hypertension, Diabetes - Social History Alcohol Use: Daily Alcohol Amount: 1-2 glasses of wine a night Substance Use Type: Reports: None Smoking Status (MU): Former Smoker Type: Cigarettes Have You Smoked in the Last Year: No Review of Systems Constitutional: Negative Positive: Photophobia ENT: Negative Cardiovascular: Negative Respiratory: Negative Gastrointestinal: Negative Genitourinary: Negative Musculoskeletal: Negative Skin: Other - SEE HPI All Other Systems Reviewed And Are Negative: Yes Physical Exam - Summary Physical Exam Summary: Vital Signs Reviewed: Yes Eye Exam: Normal Eyes: Positive: Conjunctiva Clear ENT: Positive: Normal ENT inspection Neck: Positive: Supple Respiratory Exam: Normal Respiratory: Positive: Lungs clear Cardiovascular Exam: Normal Cardiovascular: Positive: RRR Abdomen: NT/ND Musculoskeletal Exam: Normal Neurological Exam: Normal Psychological Exam: Normal Skin Exam: small 1 cm skin avulsion on right posterior forearm with skin flap intact Vital Signs On Initial Exam: Initial Vitals Temp Pulse Resp BP Pulse Ox 36.3 C 79 19 140/75 100 11/17/18 07:20 11/17/18 07:20 11/17/18 07:20 11/17/18 07:20 11/17/18 07:20 Diagnostics - Vital Signs Vital Signs Temp Pulse Resp BP Pulse Ox 11/17/18 07:20 36.3 C 79 19 140/75 100 - Laboratory Lab Statement: Any lab studies that have been ordered have been reviewed, and results considered in the medical decision making process. Course/Dx - Course Assessment/Plan: skin avulsion- dermabonded with good skin approximation, wound care instructions given - Diagnoses Provider Diagnoses: Avulsion of skin of right forearm Discharge ED - Sign-Out/Discharge Documenting (check all that apply): Patient Departure All imaging exams completed and their final reports reviewed: No Studies - Discharge Plan Condition: Stable Disposition: HOME Patient Education Materials: Skin Adhesive Care (ED) Referrals: Tylor Bender MD [Primary Care Provider] - - Billing Disposition and Condition Condition: STABLE Disposition: Home
== END 2018-11-17 08:25 | disposition home or self-care (01) ==
LOC: UCEAST 07:16
DX: S50.811A Abrasion of right forearm, initial encounter (principal); W22.8XXA Striking against or struck by other objects, initial encounter; Y92.009 Unspecified place in unspecified non-institutional (private) residence as the place of occurrence of the external cause; I10 Essential (primary) hypertension; Z87.891 Personal history of nicotine dependence
CPT/HCPCS: 12001; 99211; G0463

== ENCOUNTER 2019-03-05 16:13 | Emergency (ER) | payer MEDICARE ==
[2019-03-05 16:33] VITALS: BP 150/76
--- NOTE | 2019-03-05 17:30 | UC ---
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 STATES IT HAS BEEN OOZING BLOOD PERSISTENTLY AND HE CAME IN BECAUSE IT WOULD NOT STOP BLEEDING. UP-TO-DATE TETANUS. - History Of Current Complaint Chief Complaint: UCLaceration Stated Complaint: FINGER LACERATION Time Seen by Provider: 03/05/19 17:09 Hx Obtained From: Patient Laceration Location: Finger - LEFT 3RD Mechanism Of Injury: Sharp Trauma Onset/Duration: Sudden Onset, Lasting Hours, Still Present Severity: Mild Pain Intensity: 0 Pain Scale Used: 0-10 Numeric Aggravating Factors: Nothing Related History: Dominant Hand Right - Allergies/Home Medications Allergies/Adverse Reactions: Allergies Allergy/AdvReac Type Severity Reaction Status Date / Time No Known Allergies Allergy Verified 03/05/19 16:33 PMH/Surg Hx/FS Hx/Imm Hx Cardiovascular History: Hypertension Respiratory History: Asthma Other Cancer History: SKIN CANCER - Surgical History Surgical History: Yes Surgery Procedure, Year, and Place: CARPAL TUNNEL, L3-4 REPAIR OF BULGING DISC. BILATERAL CATARACTS - Family History Known Family History: Positive: Non-Contributory Negative: Hypertension, Diabetes - Social History Alcohol Use: Daily Alcohol Amount: 1-2 glasses of wine a night Substance Use Type: None Smoking Status (MU): Former Smoker Type: Cigarettes Have You Smoked in the Last Year: No When Did the Patient Quit Smoking/Using Tobacco: 48 years ago - Immunization History Most Recent Influenza Vaccination: fall 2015 Review of Systems All Other Systems Reviewed And Are Negative: Yes Constitutional: Positive: Negative Skin: Positive: Other - LACERATION Respiratory: Positive: Negative Cardiovascular: Positive: Negative Gastrointestinal: Positive: Negative Physical Exam Triage Information Reviewed: Yes Appearance: Well-Appearing, No Pain Distress, Well-Nourished Vital Signs: Initial Vital Signs Temp 97.3 F 03/05/19 16:25 Pulse 79 03/05/19 16:25 Resp 16 03/05/19 16:25 BP 150/76 03/05/19 16:25 Pulse Ox 100 03/05/19 16:25 Vital Signs Reviewed: Yes Eyes: Positive: Conjunctiva Clear ENT: Positive: Hearing grossly normal Neck: Positive: Supple Respiratory: Positive: No respiratory distress, No accessory muscle use Cardiovascular: Positive: Pulses Normal Abdomen Description: Positive: Soft Musculoskeletal: Positive: ROM Intact, No Edema Neurological: Positive: Alert Psychological: Positive: Age Appropriate Behavior Skin: Positive: Other - 5MM V-SHAPED LACERATION LEFT DISTAL 3RD FINGER LATERAL ASPECT Laceration Repair - Laceration Repair 1 Description: Stellate Laceration Size After Repair: Length (cm) - 0.5MM, Width (mm) - 0MM, Depth (mm) - 1MM Modified For Repair: No Cleansing Completed Via Routine Prep: Yes Irrigation With Pressure Irrigation Device: Yes Closure Material: Skin Adhesive, SteriStrips Laceration Course/Dx - Course/Dx Course Of Treatment: PATIENT PRESENTS WITH A SMALL LACERATION TO HIS LEFT DISTAL THIRD FINGER. NICKED IT WITH A KNIFE WHILE TRYING TO OPEN A BOX OF HOLGER LITTER. STATES IT HAS BEEN OOZING AND HE CAME IN BECAUSE IT WOULDN'T STOP BLEEDING. TAKES A BABY ASPIRIN ONCE DAILY BUT NO OTHER BLOOD THINNERS. BY THE TIME PATIENT ARRIVED TO THE THE BLEEDING HAD STOPPED. WOUND REPAIRED WITH DERMABOND AND STERI- STRIPS. - Diagnosis Provider Diagnosis: Laceration of finger of left hand Discharge ED - Sign-Out/Discharge Documenting (check all that apply): Patient Departure All imaging exams completed and their final reports reviewed: No Studies - Discharge Plan Condition: Stable Disposition: HOME Patient Education Materials: Laceration (ED) Referrals: Tylor Bender MD [Primary Care Provider] - If Needed Additional Instructions: KEEP DRESSINGS IN PLACE AND DRY FOR THE FIRST 24 HRS. SEEK FOLLOW-UP IF YOU DEVELOP SPREADING REDNESS OF THE SKIN, PURULENT DRAINAGE, FEVER, INCREASED PAIN OR ANY OTHER CONCERNING SYMPTOMS. THE STERISTRIPS WILL FALL OFF ON THEIR OWN IN THE NEXT WEEK OR SO. DO NOT PUT ANY OINTMENT ON TOP OF THEM. DO NOT SUBMERGE IN WATER FOR PROLONGED PERIOD OF TIME. OKAY FOR BRIEF SHOWER AFTER 24 HOURS AND THEN BE SURE TO ALLOW TO DRY COMPLETELY. - Billing Disposition and Condition Condition: STABLE Disposition: Home
== END 2019-03-05 17:30 | disposition home or self-care (01) ==
LOC: UCEAST 16:13
DX: S61.213A Laceration without foreign body of left middle finger without damage to nail, initial encounter (principal); I10 Essential (primary) hypertension; J45.909 Unspecified asthma, uncomplicated; Z85.828 Personal history of other malignant neoplasm of skin; Z87.891 Personal history of nicotine dependence; W26.0XXA Contact with knife, initial encounter; Y92.9 Unspecified place or not applicable
CPT/HCPCS: 12001; 99211; G0463

== ENCOUNTER 2019-03-25 11:27 | Emergency (ER) | payer MEDICARE ==
--- OUTSIDE RECORDS SUMMARY | 2019-03-25 11:36 | XMS REPORT | Continuity of Care Document ---
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 Onset: 08/25/2011 Palpitations Tylor Bender M.D. Onset: 11/20/2011 Raynaud's disease Tylor Bender M.D. Onset: 11/20/2011 Hyperlipidemia Tylor Bender M.D. Onset: 11/20/2011 Malaise and fatigue Tylor Bender M.D. 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 Onset: 03/10/2013 Low back pain Tylor Bender M.D. Onset: 04/07/2015 Skin sensation disturbance Tylor Bender M.D. Onset: 05/01/2017 Other cerebrovascular disease Tylor Bender M.D. Onset: 05/01/2017 Social History Type Date Description Comments Sex Unknown Tobacco Use Start: Unknown Nonsmoker Smoking Status Reviewed: 03/18/19 Nonsmoker Tobacco Use Start: Unknown nonsmoker Allergies, Adverse Reactions, Alerts Description No Known Drug Allergies Medications Active Medications SIG Qnty Indications Ordering Provider Date Amlodipine Besylate 1 by mouth 90tabs Tylor Bender, 02/15/2015 5mg every day M.D. Tablets Aspirin 1 po qd Family Medicine 03/16/2009 81mg Chewtabs [facility] Atorvastatin Calcium 1 by mouth 90tabs Tylor Bender, 20mg every day M.D. Tablets History Medications Prednisone 3 tabs x 3 15tabs M25.542 Tylor Phan 01/21/2019 - 20mg days, 2 tab x Selwyn Bender 03/17/2019 Tablets 3 days, 1 tab x 3 days then stop Immunizations CPT Code Status Date Vaccine Lot # [id number] Given 11/15/2017 High-Dose, Influenza Virus Vacccine-fluzone 65 [id number] and older 72548 Given 01/18/2017 Pneumococcal Conjugate Vacc-13 75700 Given 11/08/2016 High-Dose, Influenza Virus Vacccine-fluzone 65 [id number] and older 29269 Given 12/15/2015 High-Dose, Influenza Virus Vacccine-fluzone 65 [id number] and older 88855 Given 11/20/2011 Tdap Tetanus, W Pertussis [id number] Given 11/29/2010 Split Influenza Medicare: Fluzone [id number] 29872 Given 12/11/2009 DO Not Use Split Influenza Virus Vaccine [id number] 40172 Given 02/11/2008 Zostivax [id number] 38393 Given 12/20/2006 DO Not Use Split Influenza Virus Vaccine 99043 Given 12/19/2005 Pneumococcal Immunization 11946 Given 12/19/2005 DO Not Use Split Influenza Virus Vaccine 09608 Given 02/19/2002 DO Not Use Split Influenza Virus Vaccine 09230 Given 03/09/1997 Td Immunization, For Use In Individuals 7 Years Or Older Vital Signs Date Vital Result Comment 03/18/2019 11:25am BP Systolic 116 mmHg BP Diastolic 66 mmHg Heart Rate 72 /min Body Temperature 98.6 F Respiratory Rate 16 /min Height 65.25 inches 5'5.25" Weight 114.12 lb BMI (Body Mass Index) 18.8 kg/m2 01/21/2019 11:31am BP Systolic 124 mmHg BP Diastolic 60 mmHg Heart Rate 66 /min Body Temperature 96.7 F Results Test Acquired Date Facility Test Result H/L Range Note Laboratory test 01/15/2019 [facility] Cyclic TNP () 1 finding Citrullinated Pep Igg Bev Panel--LD 01/15/2019 [facility] Rheumatoid Factor 10 IU/mL Normal <15 2 ([facility]) U1 CONTROL CLERK AUDITING/SNRNP Igg 01/15/2019 [facility] U1 CONTROL CLERK AUDITING IgG Autoabs <0.2 U 3 Autoabs Ssa/SSB Abs Igg 01/15/2019 [facility] SS-A/Ro Antibody <0.2 U 4 SS-B/La Antibody <0.2 U 5 Connective Tissue Panel 01/15/2019 [facility] Anti-Nuclear Antibody 0.3 U 6 Cyclic Citrullinated Peptide <15.6 U 7 Interpretation See Comment 8 Laboratory test 01/15/2019 [facility] C Reactive < 1.00 Normal <8.01 9 finding Protein mg/L Laboratory test 01/15/2019 [facility]) Uric Acid 5.4 mg/dL 2.5- 9.2 finding CBC Electronic 01/15/2019 [facility]) WBC 7.2 4.0-10.0 Fma x10^3/UL RBC 4.11 x10^6/UL 3.93-6.00 HGB 13.0 g/dL 12.0-17.0 HCT 39 % 35-50 MCV 95.4 fL High 80.0-95.0 MCH 31.6 pg 25.6-32.2 MCHC 33.2 g/dL 32.2-36.0 RDW-CV 13.0 % 11.6-14.4 PLT 235 x10^3/UL 163-400 MPV 9.8 fL 9.4-12.4 Otto# 4.11 x10^3/UL 1.56-6.13 Lymph# 2.21 x10^3/UL 1.18-3.74 [place]# 0.57 x10^3/UL 0.24-0.82 Eos # 0.3 x10^3/UL 0.0-0.5 Baso # 0.03 x10^3/UL 0.01-0.08 Otto% 57.2 % 34.0-70.0 Lymph % 30.7 % 20.0-52.0 [place]% 7.9 % 5.0-12.0 Eos% 3.5 % 0.7-7.0 Baso% 0.4 % 0.1-1.2 Laboratory test 01/15/2019 family medicine Sedimentation Rate 12mm 0-15 M finding (678)- - 0-20 F Xray 01/15/2019 [facility] Min 3 Views SEE ATTACHED [facility] LT [phone] 1 Cancelled due to duplicate test on this order Test Performed by: [place] [address] Supervisor Cd Area: Bang Fernández M.D. Ph.D.; CLIA# [id number] 2 4 [facility] [id number] 3 REFERENCE VALUE <1.0 (Negative) Test Performed by: [facility] [place] [address] Supervisor Cd Area: Bang Fernández M.D. Ph.D.; JUANITOIA# [id number] 4 REFERENCE VALUE <1.0 (Negative) 5 REFERENCE VALUE <1.0 (Negative) Test Performed by: [facility] [place] [address] Supervisor Cd Area: Bang Fernández M.D. Ph.D.; CLIA# [id number] 6 REFERENCE VALUE <=1.0 (Negative) 7 REFERENCE VALUE <20.0 (Negative) 8 Tests for antibodies to dsDNA and SAMSON antigens are not performed automatically unless the BEV result is > or = 3.0 U. Studies performed at [facility] indicate that positive BEV results <3.0 U are rarely accompanied by positive second order tests. Test Performed by: [facility] [address] [place] [address] Supervisor Cd Area: Bang Fernández M.D. Ph.D.; CLIA# [id number] 9 4 sst [id number] Procedures Date Code Description Status 02/12/2007 11008689 Colonoscopy Completed Medical Devices Description No Information Available Encounters Type Date Location Provider Dx Diagnosis Office Visit 03/18/2019 Main Office Yanni Kamara06.9 Acute upper 11:30a ANGELA Stewart respiratory infection, unspecified Office Visit 01/21/2019 [facility] Office Gisela Santa, M25.542 Pain in joints of 11:30a PA left hand Office Visit 01/15/2019 [facility] Office Gisela Santa M25.542 Pain in joints of 10:30a PA left hand M25.541 Pain in joints of right hand Assessments Date Code Description Provider 03/18/2019 J06.9 Acute upper respiratory infection, Yanni Stewart NP unspecified 01/21/2019 M25.542 Pain in joints of left hand Gisela Santa, PA 01/15/2019 M25.542 Pain in joints of left hand Gisela Santa, PA 01/15/2019 M25.541 Pain in joints of right hand NILESH Dexter Plan of Treatment Future Appointment(s):04/22/2019 9:40 am - Tylor Bender M.D. at [facility] [id number]/18/2019 - Yanni Stewart NPJ06.9 Acute upper respiratory infection, unspecifiedNew Labs:Flu A&B (Fma), Ordered: Comments:Upper respiratory infections are rough on your system. Not only do they make you really tired but they dehydrate you really quickly! Supportive care: 1) Make sure you are resting. This is the only way the body can take the energy it needs to heal itself. 2) Fluids, fluids, fluids! - Drink a lot of water or other caffeine free, clear liquids - Use a humidifier in your room at night - If tolerated, use a saline nasal spray to help clear out your sinuses 3 ) Cough and blow it out, the more you can getout of your system the better4) Make sure you are washing your hands well so you are not spreading your illness to the community. 5) Try using Mucinex, Tylenol, or Motrin for symptom reliefWe expect you to feel better in a week or so - viral illnesses can last 1-2 weeks, if you are not improving or begin to get worse, please contact the office to be seen again. we discussed that if he is worseningwe could try a round of Abx - Amoxicillin to cover sinus and chest, but at this time trying supportive care and if not working or worsening condition then we will send in.AllComments: Medication Management Patient Understands medications he 's taking? Yes No Are there Barriers to Adherence? Yes No Has the patient been asked about herbal supplements and therapies, andOTC meds? Yes No Care Plan1. Patient has been queried about patient's goals/preferences and functional/lifestyle goals at relevant visits. If relevant, describe: na2. Treatment goals as explained to the patient: above3. Are there barriers to meeting treatment goals? Yes No If Yes, please describe: disease process, polypharmacy, comorbid conditions4. Self-Management goals as described to the patient: Yes NoAs always, we strongly encourage a healthy diet and making physical activity a part of your every day life. If you have questions about how or where to start, please contact the office. Functional Status Description No Information Available Mental Status Description No Information Available Referrals Description No Information Available
[2019-03-25 12:13] VITALS: BP 125/61
--- NOTE | 2019-03-25 12:58 | UC ---
Epistaxis Nasal HPI - HPI Summary HPI Summary: PATIENT HAS HAD URI SYMPTOMS FOR THE PAST WEEK OR SO. HE STATES THEY ARE DEFINITELY IMPROVING HOWEVER YESTERDAY HE BLEW HIS NOSE AND DEVELOPED A LEFT- SIDED NOSEBLEED. BLEEDING STOPPED EASILY AFTER ABOUT 5 - 10 MINUTES OF CONSTANT PRESSURE. NO BLEEDING OVERNIGHT BUT STATES THAT THIS MORNING HAS HAD SOME PERSISTENT OOZING FROM HIS LEFT NOSTRIL. PATIENT ARRIVES IN NO DISTRESS. NO ACTIVE BLEEDING OR DRIPPING OUT HIS NARES. TAKES 81MG ASA DAILY. - History of Current Complaint Chief Complaint: UCGeneralIllness Stated Complaint: BLOODY NOSE Time Seen by Provider: 03/25/19 11:30 Hx Obtained From: Patient Onset/Duration: Sudden Onset, Lasting Hours, Still Present Severity Initially: Moderate Severity Currently: Mild Pain Intensity: 0 Pain Scale Used: 0-10 Numeric Character: Light Aggravating Factor(s): URI Alleviating Factor(s): Pressure - Allergies/Home Medications Allergies/Adverse Reactions: Allergies Allergy/AdvReac Type Severity Reaction Status Date / Time No Known Allergies Allergy Verified 03/25/19 12:05 Home Medications: Home Medications L.acidoph,Paracasei, B.lactis [Probiotic] 1 each PO DAILY 03/25/19 [History Confirmed 03/25/19] PMH/Surg Hx/FS Hx/Imm Hx - Additional Past Medical History Additional PMH: ARTHRITIS Cardiovascular History: Hypertension Respiratory History: Asthma Other Cancer History: SKIN CANCER - Surgical History Surgical History: Yes Surgery Procedure, Year, and Place: CARPAL TUNNEL, L3-4 REPAIR OF BULGING DISC. BILATERAL CATARACTS - Family History Known Family History: Positive: Non-Contributory Negative: Hypertension, Diabetes - Social History Alcohol Use: Daily Alcohol Amount: 1-2 glasses of wine a night Substance Use Type: None Smoking Status (MU): Former Smoker Type: Cigarettes Length of Time of Smoking/Using Tobacco: 15 years Have You Smoked in the Last Year: No When Did the Patient Quit Smoking/Using Tobacco: 1967 - Immunization History Most Recent Influenza Vaccination: fall 2015 Review of Systems All Other Systems Reviewed And Are Negative: Yes Constitutional: Positive: Negative ENT: Positive: Epistaxis Respiratory: Positive: Negative Cardiovascular: Positive: Negative Physical Exam Triage Information Reviewed: Yes Appearance: Well-Appearing, No Pain Distress, Well-Nourished Vital Signs: Initial Vital Signs Temp 97.6 F 03/25/19 12:06 Pulse 66 03/25/19 12:06 Resp 18 03/25/19 12:06 BP 125/61 03/25/19 12:06 Pulse Ox 100 03/25/19 12:06 Vital Signs Reviewed: Yes Eyes: Positive: Conjunctiva Clear ENT: Positive: Hearing grossly normal, Pharynx normal, Other - SMALL AMOUNT FRESH BLOOD IN LEFT NASAL PASSAGE. CLOT ON SEPTUM. NO ACTIVE OOZING. Neck: Positive: Supple Respiratory: Positive: No respiratory distress, No accessory muscle use Cardiovascular: Positive: Pulses Normal Abdomen Description: Positive: Soft Musculoskeletal: Positive: No Edema Neurological: Positive: Alert Psychological: Positive: Age Appropriate Behavior Skin: Negative: Rashes Epistaxis Nasal Course/Dx - Course Course Of Treatment: PATIENT LIKELY WITH NOSEBLEED DUE TO TRAUMA FROM OVER BLOWING HIS NOSE IN CONJUNCTION WITH THE DRY WINTER AIR. ADVISED THAT HE SWIRL ANTIBIOTIC OINTMENT UP BOTH HIS NOSTRILS NIGHTLY FOR THE NEXT FEW WEEKS AND THEN SEVERAL TIMES A WEEK FOR THE REST OF THE WINTER TO KEEP HIS MUCOUS MEMBRANES FROM BEING SO FRIABLE. ADVISED PATIENT TO FOLLOW UP WITH ENT TOMORROW IF HE IS STILL OOZING. - Differential Dx/Diagnosis Provider Diagnosis: Bleeding nose Discharge ED - Sign-Out/Discharge Documenting (check all that apply): Patient Departure All imaging exams completed and their final reports reviewed: No Studies - Discharge Plan Condition: Stable Disposition: HOME Patient Education Materials: Nosebleed (ED) Referrals: [facility] [Provider Group] - If Needed Tylor Bender MD [Primary Care Provider] - If Needed Additional Instructions: NO CLEAR ACTIVE BLEEDING ON PHYSICAL EXAM TODAY. AVOID TRAUMA TO YOUR NOSE. DO NOT BLOW IF YOU CAN AVOID IT. IF YOU'RE STILL OOZING BLOOD TOMORROW CALL ENT FOR A FOLLOW-UP APPOINTMENT. - Billing Disposition and Condition Condition: STABLE Disposition: Home
== END 2019-03-25 12:47 | disposition home or self-care (01) ==
LOC: UCEAST 11:27
DX: R04.0 Epistaxis (principal); I10 Essential (primary) hypertension; J45.909 Unspecified asthma, uncomplicated; C44.90 Unspecified malignant neoplasm of skin, unspecified; Z87.891 Personal history of nicotine dependence
CPT/HCPCS: 99201; G0463

== ENCOUNTER 2021-11-02 08:08 | Inpatient (IN) ==
[2021-11-02] MEDS ORDERED: Ondansetron 4 mg VIAL 2 MG/ML 2 ml VIAL IV ONE (08:50)
[2021-11-02] MEDS ORDERED: Ondansetron 4 mg VIAL 2 MG/ML 2 ml VIAL ONE (08:51)
[2021-11-02] MEDS ORDERED: Morphine 4 MG/ML VIAL (1 ml) IV ONE (08:54)
[2021-11-02 09:13] LABS: ABS Lymphocytes 1.2 10^3/ul (1.0-4.8); ABS Monocytes 0.7 10^3/ul (0-0.8); ABS Neutrophils 9.6 10^3/ul (1.5-7.7); Eosinophil % 0.1 %; Hematocrit 38 % (42-52); Hemoglobin 12.3 g/dL (14.0-18.0); Lymphocyte % 10.6 %; Mean Corpuscular HGB Conc 32 g/dL (31-36); Mean Corpuscular Hemoglobin 30 pg (27-31); Mean Corpuscular Volume 94 fL (80-94); Mean Platelet Volume 8.8 fL (7.4-10.4); Platelet Count 208 10^3/uL (150-450); Red Blood Count 4.05 10^6 /uL (4.18-5.48); Red Cell Distribution Width 14 % (10-15); White Blood Count 11.6 10^3/uL (3.5-10.8)
[2021-11-02 09:40] LABS: Albumin 4.4 g/dL (3.2-5.2); Albumin/Globulin Ratio 1.3 (1-3); C Reactive Protein 3.21 mg/L (<8.01); Calcium 9.7 mg/dL (8.6-10.3); Globulin 3.4 g/dL (2-4); Potassium 3.5 mmol/L (3.5-5.0); Total Bilirubin 0.8 mg/dL (0.2-1.0); Total Protein 7.8 g/dL (6.4-8.9); eGFR CKD-EPI 50.8 (>60)
[2021-11-02] MEDS ORDERED: Iodixanol (CONTRAST) 320 MG/ML 100 ML SDV IV ONE (09:50)
[2021-11-02] MEDS ORDERED: Piperacillin/Tazobac ADVAN 3.375 GM in NS 0.9% 100 ml BAG 100 ML IV ONE (11:14)
[2021-11-02] MEDS ORDERED: Zosyn per Pharmacy NOTE FOLLOW UP SCH (12:00)
[2021-11-02] MEDS ORDERED: Enoxaparin 30 MG/0.3 ML SYR SUBCUT SCH (12:00)
[2021-11-02] MEDS ORDERED: hydrALAZINE 20 mg/ml 1 ML Vial IV IV SLOW PU ONE (12:58)
[2021-11-02] MEDS ORDERED: PEG 3000 GI LAVAGE 1 GALLON PO ONE ×2 (13:11→18:06)
[2021-11-02] MEDS ORDERED: Lactated Ringers 1000 ml BAG 1,000 ML IV ONE (13:52)
[2021-11-02] MEDS ORDERED: ZOSYN 3.375 GM per EXTENDED INFUSION IV ONE (16:00)
[2021-11-02] MEDS ORDERED: Sodium Phosphate ADULT ENEMA 133 ML BTL PR ONE (18:06)
[2021-11-02] MEDS ORDERED: NS 0.9% 1000 ml BAG 1,000 ML IV SCH (18:30)
[2021-11-02] MEDS ORDERED: NS 0.9% w/ 20 Meq KCL 1000 ml 1,000 ML IV SCH (19:00)
[2021-11-02 19:07] LABS: ABS Lymphocytes 0.8 10^3/ul (1.0-4.8); ABS Monocytes 0.8 10^3/ul (0-0.8); ABS Neutrophils 11.4 10^3/ul (1.5-7.7); Hematocrit 40 % (42-52); Hemoglobin 13.1 g/dL (14.0-18.0); Mean Corpuscular HGB Conc 33 g/dL (31-36); Mean Corpuscular Hemoglobin 31 pg (27-31); Mean Corpuscular Volume 95 fL (80-94); Mean Platelet Volume 8.6 fL (7.4-10.4); Platelet Count 219 10^3/uL (150-450); Red Blood Count 4.21 10^6 /uL (4.18-5.48); Red Cell Distribution Width 14 % (10-15)
[2021-11-02] MEDS ORDERED: NS 0.9% 1000 ml BAG 1,000 ML IV ONE (19:38)
[2021-11-02 19:46] LABS: Calcium 9.7 mg/dL (8.6-10.3); Potassium 3.7 mmol/L (3.5-5.0); eGFR CKD-EPI 44.1 (>60)
[2021-11-02 22:42] LABS: Urine Appearance Cloudy; Urine Bilirubin Negative (Negative); Urine Blood 3+ (Negative); Urine Color Yellow; Urine Glucose Negative (Negative); Urine Ketones Trace (Negative); Urine Nitrite Negative (Negative); Urine Protein 2+(100 mg/dL) (Negative); Urine Specific Gravity 1.056 (1.002-1.030); Urine Urobilinogen Negative (Negative)
[2021-11-02 22:50] LABS: Urine Bacteria Absent (Absent); Urine Red Blood Cell 3+(>10/hpf) (Absent); Urine Squamous Epithelial Cell Present (Absent); Urine White Blood Cell Trace(0-5/hpf) (Absent)
[2021-11-03] MEDS: ZOSYN 3.375 GM Q8H per EXTENDED INFUSION IV SCH ×3 (02:07→17:13)
[2021-11-03] MEDS: NS 0.9% 1000 ml BAG 1,000 ML IV SCH (05:51)
[2021-11-03 08:02] LABS: Hematocrit 37 % (42-52); Mean Corpuscular HGB Conc 32 g/dL (31-36); Mean Corpuscular Hemoglobin 30 pg (27-31); Mean Corpuscular Volume 95 fL (80-94); Mean Platelet Volume 8.7 fL (7.4-10.4); Platelet Count 187 10^3/uL (150-450); Red Blood Count 3.96 10^6 /uL (4.18-5.48); Red Cell Distribution Width 14 % (10-15); White Blood Count 16.4 10^3/uL (3.5-10.8)
[2021-11-03 08:58] LABS: Calcium 8.9 mg/dL (8.6-10.3); Potassium 3.3 mmol/L (3.5-5.0); eGFR CKD-EPI 43.4 (>60)
[2021-11-03] MEDS: KCL 20 MEQ/100 ML IVPREMIX 20 MEQ/100 ML BAG IV SCH ×2 (11:26→18:36)
[2021-11-03] MEDS ORDERED: Midazolam 5 mg/5 ml VIAL 1 mg/ml 5 ml VIAL (5 mg) ONE (13:02)
[2021-11-03] MEDS ORDERED: fentaNYL 100 mcg/2 ml 50 MCG/ML VIAL ONE (13:02)
[2021-11-03] MEDS ORDERED: PEG 3000 GI LAVAGE 1 GALLON PO ONE (15:25)
[2021-11-03] MEDS: Pantoprazole VIAL 40 MG VIAL IV SCH (15:53)
[2021-11-03 18:26] LABS: PCO2 Arterial 26 mmHg (35-45); PO2 Arterial 107 mmHg (80-100)
[2021-11-03 18:43] LABS: ABS Lymphocytes 0.4 10^3/ul (1.0-4.8); ABS Monocytes 0.6 10^3/ul (0-0.8); ABS Neutrophils 11.5 10^3/ul (1.5-7.7); Hematocrit 39 % (42-52); Hemoglobin 12.2 g/dL (14.0-18.0); Lymphocyte % 3.3 %; Mean Corpuscular HGB Conc 32 g/dL (31-36); Mean Corpuscular Hemoglobin 30 pg (27-31); Mean Corpuscular Volume 95 fL (80-94); Platelet Count 179 10^3/uL (150-450); Red Blood Count 4.07 10^6 /uL (4.18-5.48); Red Cell Distribution Width 14 % (10-15); White Blood Count 12.5 10^3/uL (3.5-10.8)
[2021-11-03 18:50] LABS: INR 1.16 (0.89-1.11)
[2021-11-03 19:24] LABS: Albumin 3.3 g/dL (3.2-5.2); Albumin/Globulin Ratio 1.3 (1-3); Calcium 8.2 mg/dL (8.6-10.3); Globulin 2.5 g/dL (2-4); Magnesium 2.2 mg/dL (1.9-2.7); Potassium 4.1 mmol/L (3.5-5.0); Total Protein 5.8 g/dL (6.4-8.9); eGFR CKD-EPI 30.6 (>60)
[2021-11-04] MEDS ORDERED: Norepinephrine 16MCG/ML BAGD5W 4,000 MCG/250 ML BAG IV ONE (03:44)
[2021-11-04] MEDS ORDERED: Succinylcholine 200 mg VIAL 20 mg/ml 10 ml VIAL (200 mg) ONE (03:45)
[2021-11-04] MEDS ORDERED: Rocuronium 50 mg VIAL 10 mg/ml 5 ml VIAL (50 mg) ONE (03:45)
[2021-11-04] MEDS ORDERED: Propofol 10 mg/ml 100 ML BTL 100 ML ONE (03:52)
[2021-11-04] MEDS ORDERED: Dextrose 50% Syringe 50 ml 25 GM/50 ML SYRINGE IV PUSH PRN (04:11)
[2021-11-04] MEDS ORDERED: NS 0.9% 1000 ml BAG 1,000 ML IV ONE ×2 (04:11→05:14)
[2021-11-04 04:14] LABS: ABS Lymphocytes 0.9 10^3/ul (1.0-4.8); ABS Monocytes 0.3 10^3/ul (0-0.8); ABS Neutrophils 6.7 10^3/ul (1.5-7.7); Eosinophil % 0.1 %; Hematocrit 31 % (42-52); Hemoglobin 9.4 g/dL (14.0-18.0); Lymphocyte % 11.4 %; Mean Corpuscular HGB Conc 31 g/dL (31-36); Mean Corpuscular Hemoglobin 30 pg (27-31); Mean Corpuscular Volume 100 fL (80-94); Mean Platelet Volume 9.1 fL (7.4-10.4); Nucleated Red Blood Cells % 0.1; Platelet Count 127 10^3/uL (150-450); Red Cell Distribution Width 15 % (10-15); White Blood Count 7.9 10^3/uL (3.5-10.8)
[2021-11-04 04:21] LABS: Activated Partial Thrombo Time 30.7 seconds (26.0-38.0); INR 1.59 (0.89-1.11)
[2021-11-04] MEDS: NS 0.9% 1000 ml BAG 1,000 ML IV SCH ×3 (04:24→14:29)
[2021-11-04] MEDS: ZOSYN 3.375 GM Q8H per EXTENDED INFUSION IV SCH ×2 (04:30→09:24)
[2021-11-04] MEDS ORDERED: Propofol 10 mg/ml 100 ML BTL 100 ML IV SCH (05:00)
[2021-11-04] MEDS ORDERED: Norepinephrine 16MCG/ML BAG NS 4,000 MCG/250 ML BAG IV SCH (05:00)
[2021-11-04 05:01] LABS: Albumin 2.5 g/dL (3.2-5.2); Albumin/Globulin Ratio 1.3 (1-3); Calcium 7.7 mg/dL (8.6-10.3); Globulin 1.9 g/dL (2-4); HDL Cholesterol 41.2 mg/dL; Total Bilirubin 1.3 mg/dL (0.2-1.0); Total Protein 4.4 g/dL (6.4-8.9); eGFR CKD-EPI 24.3 (>60)
[2021-11-04 05:06] LABS: Potassium 6.2 mmol/L (3.5-5.0)
[2021-11-04] MEDS: Norepinephrine 16MCG/ML BAGD5W 4,000 MCG/250 ML BAG IV SCH ×4 (05:15→15:16)
[2021-11-04] MEDS: Chlorhexidine MOUTHWASH 0.12% 15 ML UDC TOPICAL SCH ×4 (06:16→16:11)
[2021-11-04] MEDS ORDERED: fentaNYL 100 mcg/2 ml 50 MCG/ML VIAL IV SLOW PU PRN (07:44)
[2021-11-04] MEDS: Pantoprazole VIAL 40 MG VIAL IV SCH (07:52)
[2021-11-04 09:03] VITALS: BP 103/80
[2021-11-04] MEDS ORDERED: Morphine 10 MG/ML VIAL (1 ml) IV ONE (15:52)
[2021-11-04] MEDS ORDERED: LORazepam 2 mg VIAL 1 ml IV PUSH ONE (15:52)
[2021-11-04] MEDS ORDERED: Lorazepam PYXIS KEY PRN (15:52)
[2021-11-04] MEDS ORDERED: ZOSYN 3.375 GM Q8H per EXTENDED INFUSION IV SCH (22:00)
== END 2021-11-04 16:25 | disposition expired | DRG 853 ==
LOC: ED 08:08 → SUATTDRO 11:15 → EDHOLD 11:15 → MED 17:34 → ICU 11-03 18:02
PROVIDERS: ADMIT Internal Medicine; ATTEND Internal Medicine